=== PATIENT | male | born 1950 | race Caucasian/White ===

== ENCOUNTER 2020-08-06 16:08 | Inpatient (IN) ==
[2020-08-06] MEDS ORDERED: ONDANSETRON 4 MG/2 ML VIAL ONE ×2 (16:31)
[2020-08-06] MEDS ORDERED: MORPHINE 4 MG/1 ML VIAL ONE (16:35)
[2020-08-06] MEDS ORDERED: NITROGLYCERIN SL 0.4 MG TABLET SL STA (16:35)
[2020-08-06] MEDS ORDERED: ONDANSETRON 4 MG/2 ML VIAL IV STA ×2 (16:35→18:31)
[2020-08-06] MEDS ORDERED: MORPHINE 4 MG/1 ML VIAL IV STA (16:35)
[2020-08-06 16:57] LABS: Basophils # 0.2 10*3/uL (0.0-0.2); Basophils % 1.1 % (0.0-0.8); Eosinophils # 0.4 10*3/uL (0.0-0.87); Hematocrit 42.6 VOL% (42.0-52.0); Immature Granulocytes % 0.4 %; Immature Granulocytes Absolute 0.07 #; Lymphocytes % 39.3 % (21.2-54.2); Mean Corpuscular HGB Conc 32.9 GM/DL (32-36); Mean Corpuscular Volume 94.9 FL (87-102); Mean Platelet Volume 9.6 FL (9.6-12.0); Neutrophils % 52.2 % (38.7-73.9); Platelet Count 287 T/CUMM (130-400); Red Blood Count 4.49 MC/CUMM (3.8-5.5); Red Cell Distribution Width 15.8 % (9.3-17.3); White Blood Count 17.9 T/CUMM (4-12)
[2020-08-06 17:29] LABS: Alanine Aminotransferase 19 U/L (16-61); Albumin 4.3 G/DL (3.4-5.0); Alkaline Phosphatase 77 U/L (45-117); Aspartate Amino Transferase 26 U/L (0-37); Blood Urea Nitrogen 18 MG/DL (7-18); Calcium 9.5 MG/DL (8.5-10.1); Estimated Glom Filtration Rate 77 ML/MIN; Glucose 225 MG/DL (74-106); Osmolality,Calculated 283.7 MOS/KG (273-304); Total Protein 7.7 G/DL (6.4-8.3)
[2020-08-06 17:35] LABS: Bilirubin,Urine Negative (Negative); Blood, Urine Moderate mg/dL (Negative); Glucose,Urine (UA) 150 mg/dL (Negative); Ketones,Urine 20 mg/dL (Negative); Mucus,Urine Occasional /LPF (Occasional); Nitrite,Urine Negative (Negative); Protein,Urine >=500 MG/DL; RBC,Urine 25 /HPF (0-4); Urine Appearance CLEAR (Clear); Urine Color Yellow (Yellow); Urine Specific Gravity 1.023 (1.001-1.035); Urine Urobilinogen < 2.0 EU/DL (0.2-1.0); WBC,Urine 1 /HPF (0-6)
[2020-08-06] MEDS ORDERED: POTASSIUM CHLORIDE RIDER 20 MEQ in PREMIX 1 EACH IV STA (18:13)
[2020-08-06] MEDS ORDERED: HYDROmorphone 2 MG/1 ML VIAL ONE (18:22)
[2020-08-06] MEDS ORDERED: SODIUM CHLORIDE 0.9% 1,000 ML IV STA (18:30)
[2020-08-06] MEDS ORDERED: HYDROmorphone 2 MG/1 ML VIAL IV STA ×2 (18:31→19:10)
[2020-08-06] MEDS: POTASSIUM CHLORIDE RIDER 10 MEQ in PREMIX 1 EACH IV SCH (18:50)
[2020-08-06] MEDS ORDERED: PIPERACILLIN/TAZOBACTAM 3,375 MG in SODIUM CHLORIDE 0.9% 100 ML IV STA (19:10)
[2020-08-06] MEDS ORDERED: PANTOPRAZOLE 40 MG VIAL IV STA (19:10)
[2020-08-06] MEDS ORDERED: hydrALAZINE 20 MG/1 ML VIAL IV STA ×2 (19:12→20:19)
[2020-08-06] MEDS ORDERED: NICOTINE 21 MG/24 HR PATCH TRANSDERM PRN (20:03)
[2020-08-06] MEDS ORDERED: ONDANSETRON 4 MG/2 ML VIAL IV PRN (20:03)
[2020-08-06] MEDS ORDERED: GLUCAGON 1 MG VIAL IM PRN (20:03)
[2020-08-06] MEDS ORDERED: DEXTROSE 50% 25 GM/50 ML VIAL IV PRN (20:03)
[2020-08-06] MEDS ORDERED: fentaNYL 100 MCG/2 ML VIAL IV STA (20:19)
[2020-08-06 21:04] LABS: Thyroid Stimulating Hormone 0.573 uIU/ml (0.358-3.74)
[2020-08-06] MEDS: MORPHINE 4 MG/1 ML VIAL IV PRN (23:58)
[2020-08-07] MEDS: SODIUM CHLORIDE 0.45% 1,000 ML IV SCH (00:03)
[2020-08-07] MEDS: POTASSIUM CHLORIDE RIDER 10 MEQ in PREMIX 1 EACH IV SCH ×3 (00:42→03:40)
[2020-08-07] MEDS: ENOXAPARIN 40 MG/0.4 ML SYRINGE SUBCUT SCH ×2 (01:57→21:34)
[2020-08-07] MEDS: INSULIN REGULAR 100 UNIT/ML SUBCUT SCH ×5 (01:57→21:07)
[2020-08-07] MEDS: PIPERACILLIN/TAZOBACTAM 3,375 MG in SODIUM CHLORIDE 0.9% 100 ML IV SCH ×4 (02:02→22:52)
[2020-08-07 02:47] LABS: Basophils % 0.2 % (0.0-0.8); Hematocrit 39.6 VOL% (42.0-52.0); Hemoglobin 13.9 GM/DL (14.0-18.0); Immature Granulocytes % 0.6 %; Lymphocytes # 0.9 10*3/uL (1.4-4.0); Lymphocytes % 5.4 % (21.2-54.2); Mean Corpuscular HGB Conc 35.1 GM/DL (32-36); Mean Corpuscular Volume 92.1 FL (87-102); Mean Platelet Volume 9.7 FL (9.6-12.0); Monocytes % 3.6 % (1.7-12.7); Neutrophils % 90.2 % (38.7-73.9); Platelet Count 295 T/CUMM (130-400); Red Cell Distribution Width 15.8 % (9.3-17.3); White Blood Count 17.2 T/CUMM (4-12)
[2020-08-07] MEDS: hydrALAZINE 20 MG/1 ML VIAL IV PRN ×2 (02:54→11:47)
[2020-08-07 02:59] LABS: INR 1.1; PT Patient Result 11.7 SECS (9.8-11.9); Partial Thromboplastin Time 27.5 SECS (23.9-33.8)
[2020-08-07 03:12] LABS: Albumin 4.1 G/DL (3.4-5.0); Bilirubin,Total 0.6 MG/DL (0.2-1.0); Calcium 9.5 MG/DL (8.5-10.1); Osmolality,Calculated 280.7 MOS/KG (273-304); Risk Ratio 3.18; Total Protein 7.6 G/DL (6.4-8.3); VLDL CHOLESTEROL 17.2 MG/DL
[2020-08-07] MEDS: MORPHINE 4 MG/1 ML VIAL IV PRN ×2 (03:36→07:58)
[2020-08-07] MEDS ORDERED: HYDROmorphone 2 MG/1 ML VIAL IV ONE ×2 (05:04→11:16)
[2020-08-07] MEDS: PANTOPRAZOLE 40 MG VIAL IV SCH (07:59)
[2020-08-07] MEDS ORDERED: PANTOPRAZOLE 40 MG TABLET PO SCH (09:00)
[2020-08-07] MEDS: DOXYCYCLINE HYCLATE INJ 100 MG in SODIUM CHLORIDE 0.9% 100 ML IV SCH ×2 (10:28→21:34)
[2020-08-07] MEDS ORDERED: POTASSIUM CHLORIDE 20 MEQ TABLET PO PRN (12:43)
[2020-08-07] MEDS ORDERED: BISACODYL 10 MG SUPP RECTAL ONE (12:57)
[2020-08-07] MEDS ORDERED: KETOROLAC 15 MG/1 ML VIAL IV PRN (15:55)
[2020-08-07] MEDS: HYDROmorphone 2 MG/1 ML VIAL IV PRN ×2 (18:19→21:33)
[2020-08-07] MEDS ORDERED: PHENOL 1.4% THROAT SPRAY 177 ML BOTTLE PO PRN (18:20)
[2020-08-07] MEDS: METOPROLOL TARTRATE 25 MG TABLET PO SCH (21:34)
[2020-08-07] MEDS: GABAPENTIN 600 MG TABLET PO SCH (21:34)
[2020-08-08] MEDS: HYDROmorphone 2 MG/1 ML VIAL IV PRN ×3 (02:01→08:04)
[2020-08-08] MEDS: SODIUM CHLORIDE 0.45% 1,000 ML IV SCH (05:09)
[2020-08-08 06:27] LABS: Basophils # 0.1 10*3/uL (0.0-0.2); Basophils % 0.5 % (0.0-0.8); Eosinophils # 0.1 10*3/uL (0.0-0.87); Eosinophils % 0.6 % (0.00-10.9); Hematocrit 38.5 VOL% (42.0-52.0); Hemoglobin 12.4 GM/DL (14.0-18.0); Immature Granulocytes % 0.5 %; Immature Granulocytes Absolute 0.07 #; Lymphocytes # 2.5 10*3/uL (1.4-4.0); Lymphocytes % 18.9 % (21.2-54.2); Mean Corpuscular HGB Conc 32.2 GM/DL (32-36); Mean Corpuscular Volume 95.8 FL (87-102); Mean Platelet Volume 9.6 FL (9.6-12.0); Monocytes % 7.3 % (1.7-12.7); Neutrophils % 72.2 % (38.7-73.9); Platelet Count 220 T/CUMM (130-400); Red Blood Count 4.02 MC/CUMM (3.8-5.5); Red Cell Distribution Width 15.9 % (9.3-17.3); White Blood Count 13.4 T/CUMM (4-12)
[2020-08-08 06:45] LABS: Albumin 3.6 G/DL (3.4-5.0); Bilirubin,Total 1.1 MG/DL (0.2-1.0); Calcium 9.5 MG/DL (8.5-10.1); Total Protein 6.8 G/DL (6.4-8.3)
[2020-08-08] MEDS: PIPERACILLIN/TAZOBACTAM 3,375 MG in SODIUM CHLORIDE 0.9% 100 ML IV SCH (07:39)
[2020-08-08] MEDS ORDERED: POTASSIUM CHLORIDE 20 MEQ TABLET PO PRN (07:47)
[2020-08-08] MEDS: INSULIN REGULAR 100 UNIT/ML SUBCUT SCH ×4 (08:11→22:08)
[2020-08-08] MEDS: PANTOPRAZOLE 40 MG VIAL IV SCH (09:18)
[2020-08-08] MEDS: METOPROLOL TARTRATE 25 MG TABLET PO SCH ×2 (10:34→22:07)
[2020-08-08] MEDS: ATORVASTATIN 40 MG TABLET PO SCH (10:34)
[2020-08-08] MEDS: GABAPENTIN 600 MG TABLET PO SCH ×3 (10:35→22:07)
[2020-08-08] MEDS: SERTRALINE 50 MG TABLET PO SCH (10:35)
[2020-08-08] MEDS: DOXYCYCLINE HYCLATE INJ 100 MG in SODIUM CHLORIDE 0.9% 100 ML IV SCH ×2 (11:41→22:06)
[2020-08-08] MEDS: POTASSIUM CHLORIDE RIDER 10 MEQ in PREMIX 1 EACH IV SCH ×4 (13:10→17:42)
[2020-08-08] MEDS: tiZANidine 4 MG TABLET PO SCH ×2 (14:33→22:07)
[2020-08-08] MEDS: ENOXAPARIN 40 MG/0.4 ML SYRINGE SUBCUT SCH (22:06)
[2020-08-09] MEDS: SODIUM CHLORIDE 0.45% 1,000 ML IV SCH ×4 (00:04→08:17)
[2020-08-09 06:07] LABS: Basophils # 0.1 10*3/uL (0.0-0.2); Basophils % 0.9 % (0.0-0.8); Eosinophils # 0.2 10*3/uL (0.0-0.87); Eosinophils % 2.4 % (0.00-10.9); Hematocrit 36.6 VOL% (42.0-52.0); Hemoglobin 11.5 GM/DL (14.0-18.0); Immature Granulocytes % 0.7 %; Immature Granulocytes Absolute 0.07 #; Lymphocytes # 3.3 10*3/uL (1.4-4.0); Lymphocytes % 33.7 % (21.2-54.2); Mean Corpuscular HGB Conc 31.4 GM/DL (32-36); Mean Corpuscular Volume 99.2 FL (87-102); Mean Platelet Volume 9.8 FL (9.6-12.0); Neutrophils % 55.3 % (38.7-73.9); Platelet Count 181 T/CUMM (130-400); Red Blood Count 3.69 MC/CUMM (3.8-5.5); Red Cell Distribution Width 15.7 % (9.3-17.3); White Blood Count 9.7 T/CUMM (4-12)
[2020-08-09 06:40] LABS: Albumin 3.2 G/DL (3.4-5.0); Bilirubin,Total 0.9 MG/DL (0.2-1.0); Calcium 9.1 MG/DL (8.5-10.1); Osmolality,Calculated 283.3 MOS/KG (273-304); Total Protein 6.2 G/DL (6.4-8.3)
[2020-08-09] MEDS: PIPERACILLIN/TAZOBACTAM 3,375 MG in SODIUM CHLORIDE 0.9% 100 ML IV SCH (07:01)
[2020-08-09] MEDS: POTASSIUM CHLORIDE RIDER 10 MEQ in PREMIX 1 EACH IV SCH (07:13)
[2020-08-09] MEDS: INSULIN REGULAR 100 UNIT/ML SUBCUT SCH ×2 (08:21→14:55)
[2020-08-09] MEDS ORDERED: amLODIPine 5 MG TABLET PO SCH (09:00)
[2020-08-09 09:55] VITALS: BP 164/81
[2020-08-09] MEDS: tiZANidine 4 MG TABLET PO SCH (10:35)
[2020-08-09] MEDS: ATORVASTATIN 40 MG TABLET PO SCH (10:35)
[2020-08-09] MEDS: METOPROLOL TARTRATE 25 MG TABLET PO SCH (10:35)
[2020-08-09] MEDS: SERTRALINE 50 MG TABLET PO SCH (10:36)
[2020-08-09] MEDS: GABAPENTIN 600 MG TABLET PO SCH (10:36)
[2020-08-09] MEDS: DOXYCYCLINE HYCLATE INJ 100 MG in SODIUM CHLORIDE 0.9% 100 ML IV SCH (12:05)
[2020-08-09] MEDS: PANTOPRAZOLE 40 MG VIAL IV SCH (12:05)
== END 2020-08-09 13:37 | disposition home or self-care (01) | DRG 392 ==
LOC: N.ED 16:08 → SUATTDRO 20:02 → N.EDINP 20:02 → N.3E 23:26
PROVIDERS: ADMIT Internal Medicine; ATTEND Emergency Medicine

== ENCOUNTER 2020-08-11 23:33 | Inpatient (IN) ==
[2020-08-11] MEDS ORDERED: DILTIAZEM 50 MG/10 ML VIAL IV ONE (23:58)
[2020-08-12] MEDS ORDERED: METOPROLOL TARTRATE 5 MG/5 ML VIAL IV ONE (00:01)
[2020-08-12] MEDS ORDERED: MORPHINE 4 MG/1 ML VIAL ONE (00:04)
[2020-08-12] MEDS ORDERED: ONDANSETRON 4 MG/2 ML VIAL ONE (00:04)
[2020-08-12 00:09] LABS: Basophils # 0.2 10*3/uL (0.0-0.2); Basophils % 0.8 % (0.0-0.8); Eosinophils # 0.2 10*3/uL (0.0-0.87); Eosinophils % 0.9 % (0.00-10.9); Hematocrit 44.5 VOL% (42.0-52.0); Hemoglobin 14.7 GM/DL (14.0-18.0); Immature Granulocytes % 0.7 %; Immature Granulocytes Absolute 0.12 #; Lymphocytes # 3.8 10*3/uL (1.4-4.0); Lymphocytes % 21.2 % (21.2-54.2); Mean Corpuscular Volume 94.7 FL (87-102); Mean Platelet Volume 9.3 FL (9.6-12.0); Monocytes % 3.7 % (1.7-12.7); Neutrophils % 72.7 % (38.7-73.9); Platelet Count 379 T/CUMM (130-400); Red Cell Distribution Width 15.3 % (9.3-17.3); White Blood Count 17.7 T/CUMM (4-12)
[2020-08-12] MEDS ORDERED: PANTOPRAZOLE 40 MG VIAL IV STA (00:11)
[2020-08-12] MEDS ORDERED: SODIUM CHLORIDE 0.9% 500 ML IV STA (00:11)
[2020-08-12] MEDS ORDERED: MORPHINE 4 MG/1 ML VIAL IV STA (00:11)
[2020-08-12] MEDS ORDERED: ONDANSETRON 4 MG/2 ML VIAL IV STA (00:11)
[2020-08-12 00:29] LABS: Albumin 3.7 G/DL (3.4-5.0); Bilirubin,Total 0.5 MG/DL (0.2-1.0); Calcium 9.8 MG/DL (8.5-10.1); Osmolality,Calculated 287.4 MOS/KG (273-304)
[2020-08-12 00:32] LABS: Potassium 2.5 MMOL/L (3.5-5.1)
[2020-08-12] MEDS ORDERED: POTASSIUM CHLORIDE RIDER 20 MEQ in PREMIX 1 EACH IV STA ×2 (00:33→00:37)
[2020-08-12 00:49] LABS: Amylase 56 U/L (25-115)
[2020-08-12 00:51] LABS: Troponin I 0.225 NG/ML (0.00-0.045)
[2020-08-12] MEDS ORDERED: PIPERACILLIN/TAZOBACTAM 3,375 MG in SODIUM CHLORIDE 0.9% 100 ML IV STA (01:42)
[2020-08-12 01:51] LABS: ABG Base Excess -3.9 MMOL/L (-2.5-2.5); ABG HCO3 21.2 MMOL/L (20-26); ABG Oxygen Saturation 96.4 % (95-100); ABG PCO2 29.9 MM HG (35-48); ABG PO2 77.6 MM HG (80-95); ABG TCO2 16.7 MMOL/L (23-27); Allen Test Positive; Pt O2 Delivery Device Room Air
[2020-08-12] MEDS ORDERED: SODIUM CHLORIDE 0.9% 1,000 ML IV STA ×2 (02:19→03:28)
[2020-08-12] MEDS ORDERED: DEXTROSE 50% 25 GM/50 ML VIAL IV PRN (03:28)
[2020-08-12] MEDS ORDERED: SODIUM CHLORIDE 0.9% 2,450 ML IV ONE (03:28)
[2020-08-12] MEDS ORDERED: MORPHINE 4 MG/1 ML VIAL IV PRN (03:28)
[2020-08-12] MEDS ORDERED: ONDANSETRON 4 MG/2 ML VIAL IV PRN (03:28)
[2020-08-12] MEDS ORDERED: GLUCAGON 1 MG VIAL IM PRN (03:28)
[2020-08-12 03:42] LABS: Bacteria,Urine Moderate /HPF (Few); Bilirubin,Urine Negative (Negative); Blood, Urine Small mg/dL (Negative); Glucose,Urine (UA) Negative (Negative); Granular Casts,Urine 98 /LPF (0-1); Hyaline Casts,Urine 7 /LPF (0-3); Ketones,Urine Negative (Negative); Mucus,Urine Few /LPF (Occasional); Nitrite,Urine Negative (Negative); Protein,Urine >=500 MG/DL; RBC,Urine 11 /HPF (0-4); Renal Epithelial Cells,Urine Occasional /HPF (<1); Squamous Epithelial Cell,Urine Occasional /HPF (0-10); Urine Appearance CLOUDY (Clear); Urine Color Amber (Yellow); Urine Urobilinogen < 2.0 EU/DL (0.2-1.0); WBC,Urine 8 /HPF (0-6)
[2020-08-12] MEDS: PANTOPRAZOLE 40 MG VIAL IV SCH ×2 (09:30→20:18)
[2020-08-12 09:33] LABS: Basophils % 0.2 % (0.0-0.8); Hematocrit 35.6 VOL% (42.0-52.0); Immature Granulocytes % 0.5 %; Immature Granulocytes Absolute 0.07 #; Lymphocytes # 1.8 10*3/uL (1.4-4.0); Lymphocytes % 13.5 % (21.2-54.2); Mean Corpuscular HGB Conc 33.1 GM/DL (32-36); Mean Corpuscular Volume 94.7 FL (87-102); Mean Platelet Volume 9.1 FL (9.6-12.0); Monocytes % 4.1 % (1.7-12.7); Neutrophils % 81.7 % (38.7-73.9); Red Blood Count 3.76 MC/CUMM (3.8-5.5); Red Cell Distribution Width 15.5 % (9.3-17.3); White Blood Count 13.1 T/CUMM (4-12)
[2020-08-12 09:41] LABS: Hemoglobin 11.8 GM/DL (14.0-18.0); Platelet Count 205 T/CUMM (130-400)
[2020-08-12 09:58] LABS: Bilirubin,Total 0.4 MG/DL (0.2-1.0); Calcium 8.5 MG/DL (8.5-10.1); Osmolality,Calculated 285.1 MOS/KG (273-304); Potassium 3.3 MMOL/L (3.5-5.1); Total Protein 5.9 G/DL (6.4-8.3)
[2020-08-12] MEDS ORDERED: methylPREDNISolone 4 MG TABLET PO SCH (11:00)
[2020-08-12] MEDS ORDERED: MAGNESIUM SULF RIDER 2 GM in PREMIX 1 EACH IV ONE (11:05)
[2020-08-12] MEDS ORDERED: METOPROLOL TARTRATE 5 MG/5 ML VIAL IV SCH (12:00)
[2020-08-12] MEDS: MORPHINE 4 MG/1 ML VIAL IV PRN ×3 (12:20→21:09)
[2020-08-12] MEDS: ENOXAPARIN 80 MG/0.8 ML SYRINGE SUBCUT SCH (12:30)
[2020-08-12] MEDS: POTASSIUM CHLORIDE RIDER 10 MEQ in PREMIX 1 EACH IV SCH ×2 (12:30→13:30)
[2020-08-12] MEDS: PIPERACILLIN/TAZOBACTAM 3,375 MG in SODIUM CHLORIDE 0.9% 100 ML IV SCH ×2 (12:30→18:53)
[2020-08-12 12:34] LABS: Blood Urea Nitrogen 18 MG/DL (7-18); Calcium 8.7 MG/DL (8.5-10.1); Carbon Dioxide 21 MMOL/L (21-32); Estimated Glom Filtration Rate 103 ML/MIN; Glucose 106 MG/DL (74-106); Potassium 3.2 MMOL/L (3.5-5.1); Sodium 143 MMOL/L (136-145); Thyroid Stimulating Hormone 0.272 uIU/ml (0.358-3.74)
[2020-08-12 12:35] LABS: Troponin I 0.447 NG/ML (0.00-0.045)
[2020-08-12] MEDS ORDERED: AMIODARONE INJ 150 MG in DEXTROSE 5% 100 ML IV ONE (13:59)
[2020-08-12] MEDS ORDERED: AMIODARONE INJ 450 MG in DEXTROSE 5% 241 ML IV SCH (14:00)
[2020-08-12] MEDS ORDERED: METOPROLOL TARTRATE 5 MG/5 ML VIAL IV PRN (14:00)
[2020-08-12] MEDS: dilTIAZem INJ 125 MG in SODIUM CHLORIDE 0.9% 125 MG/100 ML BAG IV SCH (14:37)
[2020-08-12] MEDS ORDERED: MAGNESIUM SULF RIDER 2 GM in PREMIX 1 EACH IV PRN (14:41)
[2020-08-12] MEDS ORDERED: MAGNESIUM SULF RIDER 4 GM in PREMIX 1 EACH IV PRN (14:41)
[2020-08-12] MEDS ORDERED: POTASSIUM CHLORIDE RIDER 10 MEQ in PREMIX 1 EACH IV PRN (14:41)
[2020-08-12] MEDS ORDERED: POTASSIUM CHLORIDE 20 MEQ TABLET PO PRN (14:41)
[2020-08-12] MEDS: AMIODARONE INJ 450 MG in DEXTROSE 5% 241 ML IV SCH (19:44)
[2020-08-13] MEDS: dilTIAZem INJ 125 MG in SODIUM CHLORIDE 0.9% 125 MG/100 ML BAG IV SCH (00:16)
[2020-08-13] MEDS: MORPHINE 4 MG/1 ML VIAL IV PRN ×6 (00:40→22:30)
[2020-08-13] MEDS: AMIODARONE INJ 450 MG in DEXTROSE 5% 241 ML IV SCH ×2 (00:59→12:24)
[2020-08-13] MEDS: PIPERACILLIN/TAZOBACTAM 3,375 MG in SODIUM CHLORIDE 0.9% 100 ML IV SCH ×3 (02:19→20:34)
[2020-08-13 05:38] LABS: Basophils # 0.1 10*3/uL (0.0-0.2); Basophils % 1.3 % (0.0-0.8); Eosinophils # 0.3 10*3/uL (0.0-0.87); Eosinophils % 2.9 % (0.00-10.9); Hematocrit 35.3 VOL% (42.0-52.0); Hemoglobin 12.1 GM/DL (14.0-18.0); Immature Granulocytes % 0.3 %; Immature Granulocytes Absolute 0.03 #; Lymphocytes % 28.8 % (21.2-54.2); Mean Corpuscular HGB Conc 34.3 GM/DL (32-36); Mean Corpuscular Volume 93.4 FL (87-102); Mean Platelet Volume 9.8 FL (9.6-12.0); Monocytes % 6.8 % (1.7-12.7); Neutrophils % 59.9 % (38.7-73.9); Platelet Count 212 T/CUMM (130-400); Red Blood Count 3.78 MC/CUMM (3.8-5.5); Red Cell Distribution Width 15.5 % (9.3-17.3); White Blood Count 10.3 T/CUMM (4-12)
[2020-08-13 06:04] LABS: Osmolality,Calculated 280.3 MOS/KG (273-304)
[2020-08-13] MEDS ORDERED: MAGNESIUM SULF RIDER 2 GM in PREMIX 1 EACH IV ONE (07:34)
[2020-08-13] MEDS: POTASSIUM CHLORIDE RIDER 10 MEQ in PREMIX 1 EACH IV SCH ×4 (08:28→11:45)
[2020-08-13] MEDS: PANTOPRAZOLE 40 MG VIAL IV SCH ×2 (08:28→20:31)
[2020-08-13] MEDS ORDERED: propofoL 200 MG/20 ML VIAL IV ONE (13:41)
[2020-08-13] MEDS ORDERED: LIDOCAINE 2% 5 ML VIAL ONE (13:41)
[2020-08-13] MEDS ORDERED: ETOMIDATE 20 MG/10 ML VIAL IV ONE (13:41)
[2020-08-13] MEDS: LACTATED RINGERS 1,000 ML IV SCH (16:15)
[2020-08-14] MEDS: dilTIAZem INJ 125 MG in SODIUM CHLORIDE 0.9% 125 MG/100 ML BAG IV SCH (00:25)
[2020-08-14] MEDS: MORPHINE 4 MG/1 ML VIAL IV PRN ×3 (01:26→16:12)
[2020-08-14] MEDS: AMIODARONE INJ 450 MG in DEXTROSE 5% 241 ML IV SCH (02:36)
[2020-08-14] MEDS: PIPERACILLIN/TAZOBACTAM 3,375 MG in SODIUM CHLORIDE 0.9% 100 ML IV SCH ×3 (05:27→21:43)
[2020-08-14 05:47] LABS: Basophils # 0.1 10*3/uL (0.0-0.2); Basophils % 1.3 % (0.0-0.8); Eosinophils # 0.3 10*3/uL (0.0-0.87); Eosinophils % 4.3 % (0.00-10.9); Hematocrit 31.5 VOL% (42.0-52.0); Hemoglobin 10.6 GM/DL (14.0-18.0); Immature Granulocytes % 0.3 %; Immature Granulocytes Absolute 0.02 #; Lymphocytes # 2.4 10*3/uL (1.4-4.0); Lymphocytes % 35.2 % (21.2-54.2); Mean Corpuscular HGB Conc 33.7 GM/DL (32-36); Mean Corpuscular Volume 94.3 FL (87-102); Mean Platelet Volume 9.5 FL (9.6-12.0); Monocytes % 6.5 % (1.7-12.7); Neutrophils % 52.4 % (38.7-73.9); Platelet Count 175 T/CUMM (130-400); Red Blood Count 3.34 MC/CUMM (3.8-5.5); Red Cell Distribution Width 15.1 % (9.3-17.3); White Blood Count 6.9 T/CUMM (4-12)
[2020-08-14 06:08] LABS: Calcium 8.5 MG/DL (8.5-10.1); Osmolality,Calculated 278.3 MOS/KG (273-304); Potassium 2.8 MMOL/L (3.5-5.1)
[2020-08-14] MEDS ORDERED: tiZANidine 4 MG TABLET PO PRN (07:35)
[2020-08-14] MEDS: LACTATED RINGERS 1,000 ML IV SCH (08:37)
[2020-08-14] MEDS: PANTOPRAZOLE 40 MG VIAL IV SCH ×2 (08:41→21:45)
[2020-08-14] MEDS: SERTRALINE 50 MG TABLET PO SCH (08:41)
[2020-08-14] MEDS: POTASSIUM CHLORIDE 20 MEQ TABLET PO SCH ×2 (08:41→21:43)
[2020-08-14] MEDS: oxyCODONE/ACETAMINOPHEN 5-325 MG TABLET PO PRN (10:47)
[2020-08-14] MEDS: ENOXAPARIN 80 MG/0.8 ML SYRINGE SUBCUT SCH (12:13)
[2020-08-15] MEDS: dilTIAZem INJ 125 MG in SODIUM CHLORIDE 0.9% 125 MG/100 ML BAG IV SCH (01:04)
[2020-08-15] MEDS: ENOXAPARIN 80 MG/0.8 ML SYRINGE SUBCUT SCH ×2 (04:57→12:05)
[2020-08-15] MEDS: PIPERACILLIN/TAZOBACTAM 3,375 MG in SODIUM CHLORIDE 0.9% 100 ML IV SCH ×3 (04:58→22:16)
[2020-08-15] MEDS: oxyCODONE/ACETAMINOPHEN 5-325 MG TABLET PO PRN ×3 (05:00→19:50)
[2020-08-15 06:02] LABS: Basophils # 0.1 10*3/uL (0.0-0.2); Basophils % 1.4 % (0.0-0.8); Eosinophils # 0.2 10*3/uL (0.0-0.87); Eosinophils % 3.8 % (0.00-10.9); Hematocrit 32.3 VOL% (42.0-52.0); Hemoglobin 11.1 GM/DL (14.0-18.0); Immature Granulocytes % 0.3 %; Immature Granulocytes Absolute 0.02 #; Lymphocytes # 2.2 10*3/uL (1.4-4.0); Lymphocytes % 35.4 % (21.2-54.2); Mean Corpuscular HGB Conc 34.4 GM/DL (32-36); Mean Corpuscular Volume 92.6 FL (87-102); Mean Platelet Volume 9.8 FL (9.6-12.0); Monocytes % 6.8 % (1.7-12.7); Neutrophils % 52.3 % (38.7-73.9); Platelet Count 187 T/CUMM (130-400); Red Blood Count 3.49 MC/CUMM (3.8-5.5); Red Cell Distribution Width 15.2 % (9.3-17.3); White Blood Count 6.3 T/CUMM (4-12)
[2020-08-15 07:49] LABS: Calcium 8.8 MG/DL (8.5-10.1); Osmolality,Calculated 280.1 MOS/KG (273-304); Potassium 3.5 MMOL/L (3.5-5.1)
[2020-08-15] MEDS ORDERED: POTASSIUM CHLORIDE 20 MEQ TABLET PO ONE (08:01)
[2020-08-15] MEDS ORDERED: MAGNESIUM SULF RIDER 2 GM in PREMIX 1 EACH IV ONE (08:01)
[2020-08-15] MEDS: PANTOPRAZOLE 40 MG VIAL IV SCH ×2 (08:59→22:14)
[2020-08-15] MEDS: SERTRALINE 50 MG TABLET PO SCH (08:59)
[2020-08-15] MEDS: AMIODARONE 200 MG TABLET PO SCH (08:59)
[2020-08-15] MEDS: MORPHINE 4 MG/1 ML VIAL IV PRN ×3 (09:59→23:57)
[2020-08-15] MEDS: LOSARTAN 25 MG TABLET PO SCH (15:14)
[2020-08-15] MEDS ORDERED: amLODIPine 5 MG TABLET PO SCH (17:00)
[2020-08-15] MEDS: APIXABAN 5 MG TABLET PO SCH (22:08)
[2020-08-16] MEDS: dilTIAZem INJ 125 MG in SODIUM CHLORIDE 0.9% 125 MG/100 ML BAG IV SCH (01:03)
[2020-08-16] MEDS: oxyCODONE/ACETAMINOPHEN 5-325 MG TABLET PO PRN ×2 (02:27→08:24)
[2020-08-16] MEDS: PIPERACILLIN/TAZOBACTAM 3,375 MG in SODIUM CHLORIDE 0.9% 100 ML IV SCH ×2 (05:36→12:32)
[2020-08-16] MEDS: MORPHINE 4 MG/1 ML VIAL IV PRN ×2 (05:45→13:37)
[2020-08-16 06:34] LABS: Basophils # 0.1 10*3/uL (0.0-0.2); Basophils % 1.7 % (0.0-0.8); Eosinophils # 0.3 10*3/uL (0.0-0.87); Eosinophils % 5.2 % (0.00-10.9); Hematocrit 33.8 VOL% (42.0-52.0); Hemoglobin 11.3 GM/DL (14.0-18.0); Immature Granulocytes % 0.2 %; Immature Granulocytes Absolute 0.01 #; Lymphocytes # 2.2 10*3/uL (1.4-4.0); Lymphocytes % 40.8 % (21.2-54.2); Mean Corpuscular HGB Conc 33.4 GM/DL (32-36); Mean Corpuscular Volume 95.5 FL (87-102); Mean Platelet Volume 9.6 FL (9.6-12.0); Monocytes % 8.3 % (1.7-12.7); Neutrophils % 43.8 % (38.7-73.9); Platelet Count 202 T/CUMM (130-400); Red Blood Count 3.54 MC/CUMM (3.8-5.5); Red Cell Distribution Width 15.1 % (9.3-17.3); White Blood Count 5.4 T/CUMM (4-12)
[2020-08-16 06:55] LABS: Osmolality,Calculated 273.5 MOS/KG (273-304); Potassium 3.3 MMOL/L (3.5-5.1)
[2020-08-16] MEDS: LOSARTAN 25 MG TABLET PO SCH (08:23)
[2020-08-16] MEDS: APIXABAN 5 MG TABLET PO SCH (08:23)
[2020-08-16] MEDS: AMIODARONE 200 MG TABLET PO SCH (08:23)
[2020-08-16] MEDS: SERTRALINE 50 MG TABLET PO SCH (08:23)
[2020-08-16] MEDS: PANTOPRAZOLE 40 MG VIAL IV SCH (08:24)
[2020-08-16] MEDS ORDERED: amLODIPine 10 MG TABLET PO SCH (09:00)
[2020-08-16 12:14] VITALS: BP 164/77
[2020-08-16] MEDS ORDERED: POTASSIUM CHLORIDE 20 MEQ TABLET PO ONE (13:29)
== END 2020-08-16 15:08 | disposition home or self-care (01) | DRG 309 ==
LOC: N.ED 23:33 → SUATTDRO 08-12 03:28 → N.EDINP 08-12 03:28 → N.TELEN 08-12 14:18
PROVIDERS: ADMIT Internal Medicine; ATTEND Internal Medicine

== ENCOUNTER 2020-08-19 14:42 | Observation (INO) ==
[2020-08-19 15:03] LABS: Basophils # 0.2 10*3/uL (0.0-0.2); Basophils % 0.9 % (0.0-0.8); Eosinophils # 0.3 10*3/uL (0.0-0.87); Eosinophils % 1.4 % (0.00-10.9); Hemoglobin 14.1 GM/DL (14.0-18.0); Immature Granulocytes % 0.7 %; Immature Granulocytes Absolute 0.13 #; Lymphocytes # 5.8 10*3/uL (1.4-4.0); Lymphocytes % 31.1 % (21.2-54.2); Mean Corpuscular Volume 99.1 FL (87-102); Mean Platelet Volume 9.2 FL (9.6-12.0); Neutrophils % 62.9 % (38.7-73.9); Platelet Count 398 T/CUMM (130-400); Red Blood Count 4.44 MC/CUMM (3.8-5.5); Red Cell Distribution Width 15.5 % (9.3-17.3); White Blood Count 18.5 T/CUMM (4-12)
[2020-08-19] MEDS ORDERED: SODIUM CHLORIDE 0.9% 500 ML IV STA (15:11)
[2020-08-19] MEDS ORDERED: DILTIAZEM 50 MG/10 ML VIAL IV STA (15:11)
[2020-08-19 15:28] LABS: Albumin 3.8 G/DL (3.4-5.0); Bilirubin,Total 0.4 MG/DL (0.2-1.0); Calcium 9.8 MG/DL (8.5-10.1); Osmolality,Calculated 281.7 MOS/KG (273-304); Potassium 3.7 MMOL/L (3.5-5.1); Total Protein 7.1 G/DL (6.4-8.3)
[2020-08-19] MEDS ORDERED: SODIUM CHLORIDE 0.9% 1,000 ML IV STA (15:31)
[2020-08-19] MEDS ORDERED: PIPERACILLIN/TAZOBACTAM 3,375 MG in SODIUM CHLORIDE 0.9% 100 ML IV STA (16:52)
[2020-08-19] MEDS ORDERED: ONDANSETRON 4 MG/2 ML VIAL IV PRN (17:15)
[2020-08-19] MEDS ORDERED: GLUCAGON 1 MG VIAL IM PRN (17:15)
[2020-08-19] MEDS ORDERED: DEXTROSE 50% 25 GM/50 ML VIAL IV PRN (17:15)
[2020-08-19 17:36] LABS: Bilirubin,Urine Negative (Negative); Blood, Urine Small mg/dL (Negative); Glucose,Urine (UA) Negative (Negative); Hyaline Casts,Urine 44 /LPF (0-3); Ketones,Urine Negative (Negative); Mucus,Urine Occasional /LPF (Occasional); Nitrite,Urine Negative (Negative); Protein,Urine Negative; RBC,Urine 4 /HPF (0-4); Squamous Epithelial Cell,Urine Occasional /HPF (0-10); Urine Appearance Slightly Hazy (Clear); Urine Color Yellow (Yellow); Urine Specific Gravity 1.009 (1.001-1.035); Urine Urobilinogen < 2.0 EU/DL (0.2-1.0); WBC,Urine 3 /HPF (0-6)
[2020-08-19] MEDS: SODIUM CHLORIDE 0.9% 1,000 ML IV SCH (18:49)
[2020-08-19] MEDS ORDERED: MAGNESIUM SULF RIDER 2 GM in PREMIX 1 EACH IV ONE (18:50)
[2020-08-19] MEDS: NICOTINE 21 MG/24 HR PATCH TRANSDERM SCH (18:50)
[2020-08-19] MEDS ORDERED: POTASSIUM CHLORIDE 10 MEQ TABLET PO ONE (18:51)
[2020-08-19] MEDS: APIXABAN 5 MG TABLET PO SCH (21:33)
[2020-08-19] MEDS: METOPROLOL TARTRATE 25 MG TABLET PO SCH (21:33)
[2020-08-19] MEDS: oxyCODONE/ACETAMINOPHEN 5-325 MG TABLET PO PRN (21:34)
[2020-08-20] MEDS: PIPERACILLIN/TAZOBACTAM 3,375 MG in SODIUM CHLORIDE 0.9% 100 ML IV SCH ×3 (02:48→17:15)
[2020-08-20] MEDS: oxyCODONE/ACETAMINOPHEN 5-325 MG TABLET PO PRN ×2 (03:51→11:18)
[2020-08-20 05:31] LABS: Basophils # 0.1 10*3/uL (0.0-0.2); Basophils % 0.5 % (0.0-0.8); Eosinophils # 0.1 10*3/uL (0.0-0.87); Hematocrit 34.2 VOL% (42.0-52.0); Hemoglobin 11.7 GM/DL (14.0-18.0); Immature Granulocytes % 0.4 %; Immature Granulocytes Absolute 0.05 #; Lymphocytes # 2.9 10*3/uL (1.4-4.0); Lymphocytes % 20.9 % (21.2-54.2); Mean Corpuscular HGB Conc 34.2 GM/DL (32-36); Mean Corpuscular Volume 95.5 FL (87-102); Mean Platelet Volume 9.8 FL (9.6-12.0); Monocytes % 4.7 % (1.7-12.7); Neutrophils % 72.5 % (38.7-73.9); Platelet Count 254 T/CUMM (130-400); Red Blood Count 3.58 MC/CUMM (3.8-5.5); Red Cell Distribution Width 15.3 % (9.3-17.3); White Blood Count 13.7 T/CUMM (4-12)
[2020-08-20 05:56] LABS: Albumin 3.2 G/DL (3.4-5.0); Bilirubin,Total 1.1 MG/DL (0.2-1.0); Calcium 9.1 MG/DL (8.5-10.1); Osmolality,Calculated 285.1 MOS/KG (273-304); Potassium 4.6 MMOL/L (3.5-5.1)
[2020-08-20 05:57] LABS: Risk Ratio 2.39
[2020-08-20] MEDS ORDERED: oxyCODONE/ACETAMINOPHEN 5-325 MG TABLET PO PRN (07:29)
[2020-08-20] MEDS ORDERED: tiZANidine 4 MG TABLET PO PRN (07:29)
[2020-08-20] MEDS ORDERED: AMIODARONE 200 MG TABLET PO SCH (09:00)
[2020-08-20] MEDS: ASPIRIN EC 81 MG TABLET PO SCH (09:25)
[2020-08-20] MEDS: THEOPHYLLINE ER (24 HR) 400 MG TABLET PO SCH (09:25)
[2020-08-20] MEDS: APIXABAN 5 MG TABLET PO SCH ×2 (09:26→21:10)
[2020-08-20] MEDS: METOPROLOL TARTRATE 25 MG TABLET PO SCH ×2 (09:26→21:11)
[2020-08-20] MEDS: SERTRALINE 50 MG TABLET PO SCH (09:26)
[2020-08-20] MEDS: POTASSIUM CHLORIDE 20 MEQ TABLET PO SCH (09:26)
[2020-08-20] MEDS: AMIODARONE 200 MG TABLET PO SCH ×2 (09:26→21:10)
[2020-08-20] MEDS: PANTOPRAZOLE 40 MG TABLET PO SCH ×2 (09:26→21:10)
[2020-08-20] MEDS: GABAPENTIN 600 MG TABLET PO SCH ×3 (09:26→21:10)
[2020-08-20] MEDS: NICOTINE 21 MG/24 HR PATCH TRANSDERM SCH (09:32)
[2020-08-20] MEDS: SODIUM CHLORIDE 0.9% 1,000 ML IV SCH (15:15)
[2020-08-20] MEDS ORDERED: gemfibroziL 600 MG TABLET PO SCH (17:00)
[2020-08-20] MEDS ORDERED: ATORVASTATIN 40 MG TABLET PO SCH (17:00)
[2020-08-21] MEDS: oxyCODONE/ACETAMINOPHEN 5-325 MG TABLET PO PRN ×2 (00:25→06:26)
[2020-08-21] MEDS: PIPERACILLIN/TAZOBACTAM 3,375 MG in SODIUM CHLORIDE 0.9% 100 ML IV SCH (02:33)
[2020-08-21 06:14] LABS: Basophils # 0.1 10*3/uL (0.0-0.2); Basophils % 1.3 % (0.0-0.8); Eosinophils # 0.2 10*3/uL (0.0-0.87); Eosinophils % 2.3 % (0.00-10.9); Hematocrit 35.4 VOL% (42.0-52.0); Immature Granulocytes % 0.4 %; Immature Granulocytes Absolute 0.03 #; Lymphocytes # 2.9 10*3/uL (1.4-4.0); Lymphocytes % 38.2 % (21.2-54.2); Mean Corpuscular HGB Conc 32.8 GM/DL (32-36); Mean Corpuscular Volume 97.8 FL (87-102); Mean Platelet Volume 9.5 FL (9.6-12.0); Monocytes % 5.2 % (1.7-12.7); Neutrophils % 52.6 % (38.7-73.9); Platelet Count 213 T/CUMM (130-400); Red Blood Count 3.62 MC/CUMM (3.8-5.5); Red Cell Distribution Width 15.2 % (9.3-17.3); White Blood Count 7.7 T/CUMM (4-12)
[2020-08-21 06:15] LABS: Hemoglobin 11.6 GM/DL (14.0-18.0)
[2020-08-21 06:26] LABS: Calcium 9.7 MG/DL (8.5-10.1); Osmolality,Calculated 278.4 MOS/KG (273-304); Potassium 4.9 MMOL/L (3.5-5.1)
[2020-08-21] MEDS ORDERED: AMIODARONE 200 MG TABLET PO SCH (08:01)
[2020-08-21] MEDS: ASPIRIN EC 81 MG TABLET PO SCH (09:04)
[2020-08-21] MEDS: SERTRALINE 50 MG TABLET PO SCH (09:04)
[2020-08-21] MEDS: PANTOPRAZOLE 40 MG TABLET PO SCH (09:04)
[2020-08-21] MEDS: APIXABAN 5 MG TABLET PO SCH (09:04)
[2020-08-21] MEDS: METOPROLOL TARTRATE 25 MG TABLET PO SCH (09:04)
[2020-08-21] MEDS: POTASSIUM CHLORIDE 20 MEQ TABLET PO SCH (09:04)
[2020-08-21] MEDS: GABAPENTIN 600 MG TABLET PO SCH (09:04)
[2020-08-21] MEDS: NICOTINE 21 MG/24 HR PATCH TRANSDERM SCH (09:05)
[2020-08-21] MEDS: THEOPHYLLINE ER (24 HR) 400 MG TABLET PO SCH (09:11)
[2020-08-21 10:55] VITALS: BP 138/71
== END 2020-08-21 11:19 | disposition home or self-care (01) ==
LOC: N.EDINP 14:42 → N.ED 14:42 → N.TELES 18:30
PROVIDERS: ADMIT Internal Medicine Geriatric Medicine; ATTEND Internal Medicine Geriatric Medicine

== ENCOUNTER 2020-08-24 10:24 | Inpatient (IN) ==
[2020-08-24 10:49] LABS: Basophils # 0.1 10*3/uL (0.0-0.2); Basophils % 0.4 % (0.0-0.8); Hematocrit 43.8 VOL% (42.0-52.0); Hemoglobin 15.1 GM/DL (14.0-18.0); Immature Granulocytes % 0.6 %; Immature Granulocytes Absolute 0.07 #; Lymphocytes # 1.2 10*3/uL (1.4-4.0); Lymphocytes % 9.8 % (21.2-54.2); Mean Corpuscular HGB Conc 34.5 GM/DL (32-36); Mean Platelet Volume 9.3 FL (9.6-12.0); Monocytes % 2.5 % (1.7-12.7); Neutrophils % 86.7 % (38.7-73.9); Platelet Count 371 T/CUMM (130-400); Red Blood Count 4.66 MC/CUMM (3.8-5.5); Red Cell Distribution Width 14.7 % (9.3-17.3); White Blood Count 12.6 T/CUMM (4-12)
[2020-08-24] MEDS ORDERED: ONDANSETRON 4 MG/2 ML VIAL IV STA (10:58)
[2020-08-24] MEDS ORDERED: HYDROmorphone 2 MG/1 ML VIAL IV STA ×2 (10:58→12:43)
[2020-08-24 11:00] LABS: INR 1.1; Partial Thromboplastin Time 28.8 SECS (23.9-33.8)
[2020-08-24 11:15] LABS: Albumin 4.2 G/DL (3.4-5.0); Bilirubin,Total 0.5 MG/DL (0.2-1.0); Calcium 11.4 MG/DL (8.5-10.1); Osmolality,Calculated 284.5 MOS/KG (273-304); Potassium 3.5 MMOL/L (3.5-5.1); Total Protein 7.8 G/DL (6.4-8.3)
[2020-08-24] MEDS ORDERED: SODIUM CHLORIDE 0.9% 1,000 ML IV STA (11:55)
[2020-08-24] MEDS ORDERED: DEXTROSE 50% 25 GM/50 ML VIAL IV PRN (13:37)
[2020-08-24] MEDS ORDERED: ACETAMINOPHEN 325 MG TABLET PO PRN (13:37)
[2020-08-24] MEDS ORDERED: ONDANSETRON 4 MG/2 ML VIAL IV PRN (13:37)
[2020-08-24] MEDS ORDERED: hydrALAZINE 20 MG/1 ML VIAL IV PRN (13:37)
[2020-08-24] MEDS ORDERED: GLUCAGON 1 MG VIAL IM PRN (13:37)
[2020-08-24] MEDS ORDERED: PANTOPRAZOLE 40 MG VIAL IV ONE (13:53)
[2020-08-24] MEDS: SODIUM CHLORIDE 0.9% 1,000 ML IV SCH ×2 (15:53→20:31)
[2020-08-24] MEDS: ATORVASTATIN 40 MG TABLET PO SCH (16:19)
[2020-08-24] MEDS: gemfibroziL 600 MG TABLET PO SCH (16:19)
[2020-08-24] MEDS: oxyCODONE/ACETAMINOPHEN 5-325 MG TABLET PO PRN (17:03)
[2020-08-24] MEDS: DICYCLOMINE 10 MG CAPSULE PO SCH ×2 (17:04→20:37)
[2020-08-24] MEDS ORDERED: LACTATED RINGERS 1,000 ML IV ONE (17:13)
[2020-08-24] MEDS: METOCLOPRAMIDE 10 MG/2 ML VIAL IV SCH (18:38)
[2020-08-24] MEDS: ENOXAPARIN 80 MG/0.8 ML SYRINGE SUBCUT SCH (20:34)
[2020-08-24] MEDS: AMIODARONE 200 MG TABLET PO SCH (20:37)
[2020-08-24] MEDS: GABAPENTIN 600 MG TABLET PO SCH (20:38)
[2020-08-24] MEDS: METOPROLOL TARTRATE 25 MG TABLET PO SCH (20:38)
[2020-08-24] MEDS ORDERED: ENOXAPARIN 40 MG/0.4 ML SYRINGE SUBCUT SCH (21:00)
[2020-08-24] MEDS: MORPHINE 4 MG/1 ML VIAL IV PRN (22:41)
[2020-08-25] MEDS: METOCLOPRAMIDE 10 MG/2 ML VIAL IV SCH ×5 (00:38→23:57)
[2020-08-25 01:01] LABS: Bacteria,Urine Occasional /HPF (Few); Bilirubin,Urine Negative (Negative); Blood, Urine Negative (Negative); Glucose,Urine (UA) Negative (Negative); Hyaline Casts,Urine 11 /LPF (0-3); Ketones,Urine Negative (Negative); Mucus,Urine Few /LPF (Occasional); Nitrite,Urine Negative (Negative); Protein,Urine 30 MG/DL; RBC,Urine 3 /HPF (0-4); Urine Appearance CLEAR (Clear); Urine Color Yellow (Yellow); Urine Specific Gravity 1.015 (1.001-1.035); Urine Urobilinogen < 2.0 EU/DL (0.2-1.0); WBC,Urine 2 /HPF (0-6)
[2020-08-25 05:44] LABS: Basophils # 0.1 10*3/uL (0.0-0.2); Basophils % 0.8 % (0.0-0.8); Eosinophils # 0.2 10*3/uL (0.0-0.87); Eosinophils % 1.6 % (0.00-10.9); Hematocrit 34.6 VOL% (42.0-52.0); Hemoglobin 11.7 GM/DL (14.0-18.0); Immature Granulocytes % 0.2 %; Immature Granulocytes Absolute 0.02 #; Lymphocytes # 2.7 10*3/uL (1.4-4.0); Lymphocytes % 28.5 % (21.2-54.2); Mean Corpuscular HGB Conc 33.8 GM/DL (32-36); Mean Corpuscular Volume 95.3 FL (87-102); Mean Platelet Volume 9.9 FL (9.6-12.0); Monocytes % 5.9 % (1.7-12.7); Platelet Count 190 T/CUMM (130-400); Red Blood Count 3.63 MC/CUMM (3.8-5.5); Red Cell Distribution Width 14.7 % (9.3-17.3); White Blood Count 9.3 T/CUMM (4-12)
[2020-08-25] MEDS: MORPHINE 4 MG/1 ML VIAL IV PRN ×3 (06:18→17:27)
[2020-08-25 06:21] LABS: Calcium 9.2 MG/DL (8.5-10.1); Osmolality,Calculated 283.1 MOS/KG (273-304); Potassium 3.8 MMOL/L (3.5-5.1)
[2020-08-25] MEDS: SODIUM CHLORIDE 0.9% 1,000 ML IV SCH ×2 (06:22→17:30)
[2020-08-25] MEDS: ASPIRIN EC 81 MG TABLET PO SCH (09:00)
[2020-08-25] MEDS: POTASSIUM CHLORIDE 20 MEQ TABLET PO SCH (09:01)
[2020-08-25] MEDS: GABAPENTIN 600 MG TABLET PO SCH ×3 (09:01→21:15)
[2020-08-25] MEDS: AMIODARONE 200 MG TABLET PO SCH ×2 (09:01→21:18)
[2020-08-25] MEDS: gemfibroziL 600 MG TABLET PO SCH ×2 (09:01→17:27)
[2020-08-25] MEDS: THEOPHYLLINE ER (24 HR) 400 MG TABLET PO SCH (09:01)
[2020-08-25] MEDS: METOPROLOL TARTRATE 25 MG TABLET PO SCH ×2 (09:01→21:15)
[2020-08-25] MEDS: SERTRALINE 50 MG TABLET PO SCH (09:01)
[2020-08-25] MEDS: DICYCLOMINE 10 MG CAPSULE PO SCH ×4 (09:01→21:15)
[2020-08-25] MEDS: oxyCODONE/ACETAMINOPHEN 5-325 MG TABLET PO PRN ×2 (09:09→23:56)
[2020-08-25] MEDS: ATORVASTATIN 40 MG TABLET PO SCH (17:27)
[2020-08-25] MEDS: ENOXAPARIN 80 MG/0.8 ML SYRINGE SUBCUT SCH (21:16)
[2020-08-26] MEDS: SODIUM CHLORIDE 0.9% 1,000 ML IV SCH (02:30)
[2020-08-26 04:44] LABS: Basophils # 0.1 10*3/uL (0.0-0.2); Basophils % 1.8 % (0.0-0.8); Eosinophils # 0.2 10*3/uL (0.0-0.87); Eosinophils % 2.6 % (0.00-10.9); Hematocrit 32.1 VOL% (42.0-52.0); Hemoglobin 10.7 GM/DL (14.0-18.0); Immature Granulocytes % 0.3 %; Immature Granulocytes Absolute 0.02 #; Lymphocytes # 2.4 10*3/uL (1.4-4.0); Lymphocytes % 38.8 % (21.2-54.2); Mean Corpuscular HGB Conc 33.3 GM/DL (32-36); Mean Corpuscular Volume 95.8 FL (87-102); Mean Platelet Volume 9.3 FL (9.6-12.0); Monocytes % 6.3 % (1.7-12.7); Neutrophils % 50.2 % (38.7-73.9); Platelet Count 171 T/CUMM (130-400); Red Blood Count 3.35 MC/CUMM (3.8-5.5); Red Cell Distribution Width 14.6 % (9.3-17.3); White Blood Count 6.2 T/CUMM (4-12)
[2020-08-26 05:06] LABS: Calcium 9.1 MG/DL (8.5-10.1); Potassium 4.4 MMOL/L (3.5-5.1)
[2020-08-26] MEDS: METOCLOPRAMIDE 10 MG/2 ML VIAL IV SCH (05:38)
[2020-08-26] MEDS: oxyCODONE/ACETAMINOPHEN 5-325 MG TABLET PO PRN ×3 (06:10→18:27)
[2020-08-26] MEDS: ASPIRIN EC 81 MG TABLET PO SCH (09:09)
[2020-08-26] MEDS: THEOPHYLLINE ER (24 HR) 400 MG TABLET PO SCH (09:09)
[2020-08-26] MEDS: gemfibroziL 600 MG TABLET PO SCH ×2 (09:10→16:03)
[2020-08-26] MEDS: GABAPENTIN 600 MG TABLET PO SCH ×3 (09:10→21:37)
[2020-08-26] MEDS: POTASSIUM CHLORIDE 20 MEQ TABLET PO SCH (09:10)
[2020-08-26] MEDS: DICYCLOMINE 10 MG CAPSULE PO SCH (09:10)
[2020-08-26] MEDS: SERTRALINE 50 MG TABLET PO SCH (09:10)
[2020-08-26] MEDS: AMIODARONE 200 MG TABLET PO SCH ×2 (09:10→21:37)
[2020-08-26] MEDS: METOPROLOL TARTRATE 25 MG TABLET PO SCH ×2 (09:10→21:37)
[2020-08-26] MEDS: ATORVASTATIN 40 MG TABLET PO SCH (18:48)
[2020-08-26] MEDS: ENOXAPARIN 80 MG/0.8 ML SYRINGE SUBCUT SCH (21:37)
[2020-08-27] MEDS: oxyCODONE/ACETAMINOPHEN 5-325 MG TABLET PO PRN ×3 (00:55→19:51)
[2020-08-27 06:37] LABS: Basophils # 0.1 10*3/uL (0.0-0.2); Basophils % 1.5 % (0.0-0.8); Eosinophils # 0.2 10*3/uL (0.0-0.87); Eosinophils % 3.7 % (0.00-10.9); Hematocrit 32.8 VOL% (42.0-52.0); Hemoglobin 11.2 GM/DL (14.0-18.0); Immature Granulocytes % 0.3 %; Immature Granulocytes Absolute 0.02 #; Lymphocytes # 2.7 10*3/uL (1.4-4.0); Lymphocytes % 43.2 % (21.2-54.2); Mean Corpuscular HGB Conc 34.1 GM/DL (32-36); Mean Corpuscular Volume 93.4 FL (87-102); Mean Platelet Volume 9.8 FL (9.6-12.0); Monocytes % 6.5 % (1.7-12.7); Neutrophils % 44.8 % (38.7-73.9); Platelet Count 183 T/CUMM (130-400); Red Blood Count 3.51 MC/CUMM (3.8-5.5); Red Cell Distribution Width 14.2 % (9.3-17.3); White Blood Count 6.2 T/CUMM (4-12)
[2020-08-27 07:08] LABS: Calcium 9.3 MG/DL (8.5-10.1); Osmolality,Calculated 278.4 MOS/KG (273-304); Potassium 3.5 MMOL/L (3.5-5.1)
[2020-08-27] MEDS: ASPIRIN EC 81 MG TABLET PO SCH (09:24)
[2020-08-27] MEDS: SERTRALINE 50 MG TABLET PO SCH (09:24)
[2020-08-27] MEDS: THEOPHYLLINE ER (24 HR) 400 MG TABLET PO SCH (09:24)
[2020-08-27] MEDS: POTASSIUM CHLORIDE 20 MEQ TABLET PO SCH (09:25)
[2020-08-27] MEDS: AMIODARONE 200 MG TABLET PO SCH ×2 (09:25→20:44)
[2020-08-27] MEDS: gemfibroziL 600 MG TABLET PO SCH ×2 (09:25→17:45)
[2020-08-27] MEDS: GABAPENTIN 600 MG TABLET PO SCH ×3 (09:25→20:44)
[2020-08-27] MEDS: METOPROLOL TARTRATE 25 MG TABLET PO SCH ×2 (09:25→20:44)
[2020-08-27] MEDS: METOCLOPRAMIDE 10 MG/2 ML VIAL IV SCH (17:45)
[2020-08-27] MEDS: ATORVASTATIN 40 MG TABLET PO SCH (17:45)
[2020-08-27] MEDS: ENOXAPARIN 80 MG/0.8 ML SYRINGE SUBCUT SCH (20:44)
[2020-08-28] MEDS: METOCLOPRAMIDE 10 MG/2 ML VIAL IV SCH ×4 (00:55→17:00)
[2020-08-28] MEDS: oxyCODONE/ACETAMINOPHEN 5-325 MG TABLET PO PRN ×4 (01:51→20:24)
[2020-08-28] MEDS: ASPIRIN EC 81 MG TABLET PO SCH (08:11)
[2020-08-28] MEDS: GABAPENTIN 600 MG TABLET PO SCH ×3 (08:13→20:24)
[2020-08-28] MEDS: SERTRALINE 50 MG TABLET PO SCH (08:13)
[2020-08-28] MEDS: POTASSIUM CHLORIDE 20 MEQ TABLET PO SCH (08:13)
[2020-08-28] MEDS: THEOPHYLLINE ER (24 HR) 400 MG TABLET PO SCH (08:13)
[2020-08-28] MEDS: gemfibroziL 600 MG TABLET PO SCH ×2 (08:13→17:00)
[2020-08-28] MEDS: AMIODARONE 200 MG TABLET PO SCH ×2 (08:13→20:25)
[2020-08-28] MEDS: METOPROLOL TARTRATE 25 MG TABLET PO SCH ×2 (08:13→20:25)
[2020-08-28] MEDS: ATORVASTATIN 40 MG TABLET PO SCH (17:00)
[2020-08-28] MEDS: ENOXAPARIN 80 MG/0.8 ML SYRINGE SUBCUT SCH (20:26)
[2020-08-29] MEDS: METOCLOPRAMIDE 10 MG/2 ML VIAL IV SCH ×4 (00:18→17:16)
[2020-08-29] MEDS: oxyCODONE/ACETAMINOPHEN 5-325 MG TABLET PO PRN ×4 (02:29→20:55)
[2020-08-29 06:40] LABS: Calcium 9.7 MG/DL (8.5-10.1); Osmolality,Calculated 275.7 MOS/KG (273-304)
[2020-08-29] MEDS: ASPIRIN EC 81 MG TABLET PO SCH (08:26)
[2020-08-29] MEDS: gemfibroziL 600 MG TABLET PO SCH ×2 (08:26→17:07)
[2020-08-29] MEDS: THEOPHYLLINE ER (24 HR) 400 MG TABLET PO SCH (08:26)
[2020-08-29] MEDS: SERTRALINE 50 MG TABLET PO SCH (08:26)
[2020-08-29] MEDS: METOPROLOL TARTRATE 25 MG TABLET PO SCH ×2 (08:27→20:56)
[2020-08-29] MEDS: POTASSIUM CHLORIDE 20 MEQ TABLET PO SCH (08:27)
[2020-08-29] MEDS: GABAPENTIN 600 MG TABLET PO SCH ×3 (08:27→20:57)
[2020-08-29] MEDS: AMIODARONE 200 MG TABLET PO SCH ×2 (08:27→20:57)
[2020-08-29] MEDS: ATORVASTATIN 40 MG TABLET PO SCH (17:07)
[2020-08-29] MEDS: APIXABAN 5 MG TABLET PO SCH (20:57)
[2020-08-30] MEDS: METOCLOPRAMIDE 10 MG/2 ML VIAL IV SCH ×5 (05:26→23:09)
[2020-08-30] MEDS: oxyCODONE/ACETAMINOPHEN 5-325 MG TABLET PO PRN ×3 (07:40→20:02)
[2020-08-30] MEDS: METOPROLOL TARTRATE 25 MG TABLET PO SCH ×2 (08:40→20:02)
[2020-08-30] MEDS: ASPIRIN EC 81 MG TABLET PO SCH (08:40)
[2020-08-30] MEDS: SERTRALINE 50 MG TABLET PO SCH (08:41)
[2020-08-30] MEDS: gemfibroziL 600 MG TABLET PO SCH ×2 (08:41→17:11)
[2020-08-30] MEDS: POTASSIUM CHLORIDE 20 MEQ TABLET PO SCH (08:41)
[2020-08-30] MEDS: AMIODARONE 200 MG TABLET PO SCH ×2 (08:41→20:02)
[2020-08-30] MEDS: THEOPHYLLINE ER (24 HR) 400 MG TABLET PO SCH (08:41)
[2020-08-30] MEDS: GABAPENTIN 600 MG TABLET PO SCH ×3 (08:41→20:02)
[2020-08-30] MEDS: APIXABAN 5 MG TABLET PO SCH ×2 (08:41→20:02)
[2020-08-30] MEDS: DOCUSATE SODIUM 100 MG CAPSULE PO SCH ×2 (15:11→20:02)
[2020-08-30] MEDS: ATORVASTATIN 40 MG TABLET PO SCH (17:11)
[2020-08-31] MEDS: oxyCODONE/ACETAMINOPHEN 5-325 MG TABLET PO PRN ×4 (02:21→21:57)
[2020-08-31] MEDS: METOCLOPRAMIDE 10 MG/2 ML VIAL IV SCH ×4 (05:26→23:59)
[2020-08-31] MEDS: gemfibroziL 600 MG TABLET PO SCH ×2 (08:24→16:04)
[2020-08-31] MEDS: POTASSIUM CHLORIDE 20 MEQ TABLET PO SCH (08:25)
[2020-08-31] MEDS: METOPROLOL TARTRATE 25 MG TABLET PO SCH ×2 (08:25→20:16)
[2020-08-31] MEDS: THEOPHYLLINE ER (24 HR) 400 MG TABLET PO SCH (08:25)
[2020-08-31] MEDS: ASPIRIN EC 81 MG TABLET PO SCH (08:25)
[2020-08-31] MEDS: AMIODARONE 200 MG TABLET PO SCH ×2 (08:25→20:16)
[2020-08-31] MEDS: GABAPENTIN 600 MG TABLET PO SCH ×3 (08:25→20:16)
[2020-08-31] MEDS: SERTRALINE 50 MG TABLET PO SCH (08:25)
[2020-08-31] MEDS: DOCUSATE SODIUM 100 MG CAPSULE PO SCH ×3 (08:25→20:16)
[2020-08-31] MEDS: APIXABAN 5 MG TABLET PO SCH ×2 (08:25→20:16)
[2020-08-31] MEDS: ATORVASTATIN 40 MG TABLET PO SCH (16:04)
[2020-09-01] MEDS: oxyCODONE/ACETAMINOPHEN 5-325 MG TABLET PO PRN ×4 (03:14→22:58)
[2020-09-01] MEDS: METOCLOPRAMIDE 10 MG/2 ML VIAL IV SCH ×3 (05:00→17:12)
[2020-09-01] MEDS: DOCUSATE SODIUM 100 MG CAPSULE PO SCH ×3 (09:43→21:02)
[2020-09-01] MEDS: APIXABAN 5 MG TABLET PO SCH ×2 (09:43→21:02)
[2020-09-01] MEDS: gemfibroziL 600 MG TABLET PO SCH ×2 (09:43→17:12)
[2020-09-01] MEDS: THEOPHYLLINE ER (24 HR) 400 MG TABLET PO SCH (09:44)
[2020-09-01] MEDS: SERTRALINE 50 MG TABLET PO SCH (09:44)
[2020-09-01] MEDS: AMIODARONE 200 MG TABLET PO SCH ×2 (09:44→21:02)
[2020-09-01] MEDS: ASPIRIN EC 81 MG TABLET PO SCH (09:44)
[2020-09-01] MEDS: POTASSIUM CHLORIDE 20 MEQ TABLET PO SCH (09:44)
[2020-09-01] MEDS: GABAPENTIN 600 MG TABLET PO SCH ×3 (09:44→21:02)
[2020-09-01] MEDS: METOPROLOL TARTRATE 25 MG TABLET PO SCH ×2 (09:44→21:03)
[2020-09-01] MEDS: ATORVASTATIN 40 MG TABLET PO SCH (17:12)
[2020-09-02] MEDS: METOCLOPRAMIDE 10 MG/2 ML VIAL IV SCH ×2 (00:47→05:58)
[2020-09-02 05:19] LABS: Basophils # 0.1 10*3/uL (0.0-0.2); Eosinophils # 0.3 10*3/uL (0.0-0.87); Eosinophils % 3.2 % (0.00-10.9); Hematocrit 38.1 VOL% (42.0-52.0); Hemoglobin 12.7 GM/DL (14.0-18.0); Immature Granulocytes % 0.3 %; Immature Granulocytes Absolute 0.03 #; Lymphocytes # 2.7 10*3/uL (1.4-4.0); Mean Corpuscular HGB Conc 33.3 GM/DL (32-36); Mean Corpuscular Volume 95.7 FL (87-102); Mean Platelet Volume 9.8 FL (9.6-12.0); Monocytes % 8.6 % (1.7-12.7); Neutrophils % 59.9 % (38.7-73.9); Platelet Count 183 T/CUMM (130-400); Red Blood Count 3.98 MC/CUMM (3.8-5.5); Red Cell Distribution Width 14.4 % (9.3-17.3); White Blood Count 9.9 T/CUMM (4-12)
[2020-09-02 05:41] LABS: Calcium 10.2 MG/DL (8.5-10.1)
[2020-09-02] MEDS: oxyCODONE/ACETAMINOPHEN 5-325 MG TABLET PO PRN (06:00)
[2020-09-02 08:26] VITALS: BP 92/46
[2020-09-02] MEDS: DOCUSATE SODIUM 100 MG CAPSULE PO SCH (09:22)
[2020-09-02] MEDS: METOPROLOL TARTRATE 25 MG TABLET PO SCH (09:22)
[2020-09-02] MEDS: ASPIRIN EC 81 MG TABLET PO SCH (09:22)
[2020-09-02] MEDS: POTASSIUM CHLORIDE 20 MEQ TABLET PO SCH (09:22)
[2020-09-02] MEDS: APIXABAN 5 MG TABLET PO SCH (09:22)
[2020-09-02] MEDS: THEOPHYLLINE ER (24 HR) 400 MG TABLET PO SCH (09:22)
[2020-09-02] MEDS: GABAPENTIN 600 MG TABLET PO SCH (09:23)
[2020-09-02] MEDS: SERTRALINE 50 MG TABLET PO SCH (09:23)
[2020-09-02] MEDS: gemfibroziL 600 MG TABLET PO SCH (09:23)
[2020-09-02] MEDS: AMIODARONE 200 MG TABLET PO SCH (10:31)
== END 2020-09-02 11:42 | disposition home or self-care (01) | DRG 392 ==
LOC: N.ED 10:24 → SUATTDRO 13:24 → N.EDINP 13:24 → N.5E 14:45
PROVIDERS: ADMIT Family Medicine; ATTEND Internal Medicine

== ENCOUNTER 2020-09-04 22:16 | Inpatient (IN) ==
[2020-09-04 23:03] LABS: Basophils % 0.3 % (0.0-0.8); Eosinophils % 0.2 % (0.00-10.9); Hematocrit 47.9 VOL% (42.0-52.0); Hemoglobin 15.8 GM/DL (14.0-18.0); Immature Granulocytes % 0.2 %; Immature Granulocytes Absolute 0.03 #; Lymphocytes # 1.5 10*3/uL (1.4-4.0); Lymphocytes % 11.9 % (21.2-54.2); Mean Corpuscular Volume 97.2 FL (87-102); Mean Platelet Volume 9.7 FL (9.6-12.0); Monocytes % 4.4 % (1.7-12.7); Platelet Count 312 T/CUMM (130-400); Red Blood Count 4.93 MC/CUMM (3.8-5.5); Red Cell Distribution Width 14.4 % (9.3-17.3); White Blood Count 12.7 T/CUMM (4-12)
[2020-09-04] MEDS ORDERED: HALOPERIDOL 5 MG/ML AMP IM STA (23:05)
[2020-09-04 23:11] LABS: INR 1.5; PT Patient Result 15.7 SECS (9.8-11.9); Partial Thromboplastin Time 36.7 SECS (23.9-33.8)
[2020-09-04] MEDS ORDERED: HALOPERIDOL 5 MG/ML AMP IV STA (23:15)
[2020-09-04 23:16] LABS: Albumin 3.4 G/DL (3.4-5.0); Bilirubin,Total 0.8 MG/DL (0.2-1.0); Osmolality,Calculated 270.1 MOS/KG (273-304); Potassium 5.5 MMOL/L (3.5-5.1); Total Protein 8.1 G/DL (6.4-8.3)
[2020-09-04 23:23] LABS: Band Neutrophils 4 % (0-10); Lymphocytes 16 % (20-55); Platelet Estimate Normal; Segmented Neutrophils 76 % (50-85); Total Cells Counted 100
[2020-09-05 01:22] LABS: Bacteria,Urine Occasional /HPF (Few); Bilirubin,Urine Negative (Negative); Blood, Urine Small mg/dL (Negative); Glucose,Urine (UA) Negative (Negative); Hyaline Casts,Urine 17 /LPF (0-3); Ketones,Urine Negative (Negative); Mucus,Urine Occasional /LPF (Occasional); Nitrite,Urine Negative (Negative); Protein,Urine 100 MG/DL; RBC,Urine 5 /HPF (0-4); Squamous Epithelial Cell,Urine Occasional /HPF (0-10); Urine Appearance Slightly Hazy (Clear); Urine Color Yellow (Yellow); Urine Urobilinogen < 2.0 EU/DL (0.2-1.0); WBC,Urine 5 /HPF (0-6)
[2020-09-05] MEDS ORDERED: PIPERACILLIN/TAZOBACTAM 3,375 MG in SODIUM CHLORIDE 0.9% 100 ML IV STA (02:04)
[2020-09-05] MEDS ORDERED: MORPHINE 4 MG/1 ML VIAL IV STA (02:11)
[2020-09-05] MEDS ORDERED: ONDANSETRON 4 MG/2 ML VIAL IV PRN (02:27)
[2020-09-05] MEDS ORDERED: HYDROmorphone 2 MG/1 ML VIAL IV PRN (02:27)
[2020-09-05] MEDS ORDERED: SODIUM CHLORIDE 0.9% 1,000 ML IV STA (02:29)
[2020-09-05] MEDS ORDERED: BENZOCAINE/BUTAMBEN/TETRACAINE SPRAY 20 GM CAN TOP STA (02:38)
[2020-09-05 02:45] LABS: Barbiturates Screen,Urine Negative (Negative); Benzodiazepines Screen,Urine Negative (Negative); Cannabinoid Screen,Urine Negative (Negative); Opiate Screen,Urine Positive (Negative); Phencyclidine Screen,Urine Negative (Negative)
[2020-09-05] MEDS ORDERED: INSULIN REGULAR 100 UNIT/ML IV STA (02:49)
[2020-09-05] MEDS ORDERED: DEXTROSE 50% 25 GM/50 ML VIAL IV STA (02:49)
[2020-09-05] MEDS: LACTATED RINGERS 1,000 ML IV SCH ×4 (04:23→23:45)
[2020-09-05] MEDS ORDERED: NOREPINEPHRINE 4 MG/4 ML VIAL IV ONE (05:14)
[2020-09-05] MEDS: NOREPINEPHRINE 8 MG in SODIUM CHLORIDE 0.9% 242 ML IV PRN ×2 (05:24→23:46)
[2020-09-05] MEDS ORDERED: SEVOFLURANE 1 UNIT/15 MINUTE INH ONE (06:30)
[2020-09-05] MEDS ORDERED: ONDANSETRON 4 MG/2 ML VIAL ONE (06:30)
[2020-09-05] MEDS ORDERED: propofoL 200 MG/20 ML VIAL IV ONE (06:30)
[2020-09-05] MEDS ORDERED: PHENYLEPHRINE 1 MG/10 ML SYRINGE IV ONE (06:30)
[2020-09-05] MEDS ORDERED: LIDOCAINE 2% 5 ML VIAL ONE (06:30)
[2020-09-05] MEDS ORDERED: SUCCINYLCHOLINE 200 MG/10 ML VIAL ONE (06:30)
[2020-09-05] MEDS ORDERED: ETOMIDATE 40 MG/20 ML VIAL IV ONE (06:30)
[2020-09-05] MEDS ORDERED: ROCURONIUM 50 MG/5 ML VIAL IV ONE (06:30)
[2020-09-05] MEDS ORDERED: MIDAZOLAM 2 MG/2 ML VIAL ONE (06:31)
[2020-09-05] MEDS ORDERED: fentaNYL 250 MCG/5 ML VIAL ONE (06:31)
[2020-09-05] MEDS ORDERED: SODIUM CHLORIDE 0.9% 1,000 ML IV PRN (06:50)
[2020-09-05] MEDS ORDERED: PROTHROMBIN COMPLEX CONC 3,500 UNIT in IV BAG 1 EACH IV ONE (06:50)
[2020-09-05] MEDS ORDERED: PHENYLEPHRINE 10 MG/1 ML VIAL IV ONE (07:28)
[2020-09-05] MEDS ORDERED: ceFAZolin 1,000 MG VIAL ONE ×2 (07:34→08:16)
[2020-09-05 08:15] LABS: ABG Base Excess -6.2 MMOL/L (-2.5-2.5); ABG HCO3 19.4 MMOL/L (20-26); ABG Oxygen Saturation 99.7 % (95-100); ABG PCO2 43.7 MM HG (35-48); ABG PH 7.279 (7.35-7.45); ABG TCO2 18.4 MMOL/L (23-27); Glucose Heart Surgery 94 MG/DL (74-106); Hematocrit Heart Surgery 37.4 PERCENT (42-52); Hemoglobin Heart Surgery 12.1 G/DL (14.0-18.0)
[2020-09-05] MEDS ORDERED: SODIUM BICARBONATE 50 MEQ/50 ML VIAL IV ONE (08:20)
[2020-09-05] MEDS ORDERED: SODIUM CHLORIDE 0.9% 1,000 ML IV ONE (08:52)
[2020-09-05] MEDS ORDERED: LACTATED RINGERS 3,000 ML IV ONE (08:52)
[2020-09-05] MEDS ORDERED: ALBUMIN 5% 12.5 GM/250 ML VIAL IV ONE (08:54)
[2020-09-05 08:58] LABS: Bilirubin,Urine Negative (Negative); Blood, Urine Moderate mg/dL (Negative); Glucose,Urine (UA) Negative (Negative); Ketones,Urine Negative (Negative); Nitrite,Urine Negative (Negative); Protein,Urine 30 MG/DL; RBC,Urine 11 /HPF (0-4); Squamous Epithelial Cell,Urine Occasional /HPF (0-10); Urine Appearance Slightly Hazy (Clear); Urine Color Amber (Yellow); Urine Specific Gravity 1.023 (1.001-1.035); Urine Urobilinogen < 2.0 EU/DL (0.2-1.0); WBC,Urine 2 /HPF (0-6)
[2020-09-05] MEDS ORDERED: PANTOPRAZOLE 40 MG TABLET PO SCH (09:00)
[2020-09-05] MEDS ORDERED: MIDAZOLAM 100 MG in SODIUM CHLORIDE 0.9% 80 ML IV PRN (09:27)
[2020-09-05] MEDS: fentaNYL INJ 1,250 MCG in SODIUM CHLORIDE 0.9% 225 ML IV PRN ×2 (10:23→23:40)
[2020-09-05 10:45] LABS: ABG Base Excess -1.6 MMOL/L (-2.5-2.5); ABG Oxygen Saturation 92.8 % (95-100); ABG PCO2 38.3 MM HG (35-48); ABG PH 7.389 (7.35-7.45); ABG TCO2 20.5 MMOL/L (23-27)
[2020-09-05 10:48] LABS: Basophils % 0.2 % (0.0-0.8); Hematocrit 35.6 VOL% (42.0-52.0); Hemoglobin 11.8 GM/DL (14.0-18.0); Immature Granulocytes % 0.2 %; Immature Granulocytes Absolute 0.01 #; Lymphocytes # 0.6 10*3/uL (1.4-4.0); Lymphocytes % 11.1 % (21.2-54.2); Mean Corpuscular HGB Conc 33.1 GM/DL (32-36); Mean Corpuscular Volume 96.7 FL (87-102); Monocytes % 3.9 % (1.7-12.7); Neutrophils % 84.6 % (38.7-73.9); Platelet Count 211 T/CUMM (130-400); Red Blood Count 3.68 MC/CUMM (3.8-5.5); Red Cell Distribution Width 14.2 % (9.3-17.3); White Blood Count 5.6 T/CUMM (4-12)
[2020-09-05 11:08] LABS: Band Neutrophils 7 % (0-10); Hypochromasia Slight; Lymphocytes 12 % (20-55); Platelet Estimate Adequate; Segmented Neutrophils 77 % (50-85); Total Cells Counted 100
[2020-09-05 11:14] LABS: Albumin 2.3 G/DL (3.4-5.0); Bilirubin,Total 0.7 MG/DL (0.2-1.0); Calcium 8.7 MG/DL (8.5-10.1); Potassium 5.3 MMOL/L (3.5-5.1); Total Protein 5.3 G/DL (6.4-8.3)
[2020-09-05] MEDS ORDERED: ALBUMIN 5% 25 GM in PREMIX 1 EACH IV ONE (16:15)
[2020-09-06] MEDS ORDERED: DILTIAZEM 50 MG/10 ML VIAL IV ONE (00:42)
[2020-09-06] MEDS: DILTIAZEM INJ 100 MG in SODIUM CHLORIDE 0.9% 100 ML IV SCH (00:49)
[2020-09-06 00:57] LABS: ABG Base Excess 0.3 MMOL/L (-2.5-2.5); ABG HCO3 24.7 MMOL/L (20-26); ABG Oxygen Saturation 98.6 % (95-100); ABG PCO2 35.6 MM HG (35-48); ABG PH 7.439 (7.35-7.45); ABG TCO2 21.7 MMOL/L (23-27)
[2020-09-06 00:58] LABS: Basophils % 0.2 % (0.0-0.8); Hematocrit 31.6 VOL% (42.0-52.0); Hemoglobin 10.5 GM/DL (14.0-18.0); Immature Granulocytes % 0.3 %; Immature Granulocytes Absolute 0.02 #; Lymphocytes # 0.7 10*3/uL (1.4-4.0); Lymphocytes % 10.2 % (21.2-54.2); Mean Corpuscular HGB Conc 33.2 GM/DL (32-36); Mean Corpuscular Volume 97.5 FL (87-102); Mean Platelet Volume 9.6 FL (9.6-12.0); Monocytes % 4.1 % (1.7-12.7); Neutrophils % 85.2 % (38.7-73.9); Platelet Count 186 T/CUMM (130-400); Red Blood Count 3.24 MC/CUMM (3.8-5.5); Red Cell Distribution Width 14.1 % (9.3-17.3); White Blood Count 6.4 T/CUMM (4-12)
[2020-09-06] MEDS ORDERED: LACTATED RINGERS 500 ML IV ONE (01:11)
[2020-09-06] MEDS ORDERED: METOPROLOL TARTRATE 5 MG/5 ML VIAL IV ONE ×2 (01:11→01:12)
[2020-09-06 01:21] LABS: Albumin 2.2 G/DL (3.4-5.0); Bilirubin,Total 0.6 MG/DL (0.2-1.0); Calcium 8.6 MG/DL (8.5-10.1); Osmolality,Calculated 288.7 MOS/KG (273-304); Total Protein 5.2 G/DL (6.4-8.3)
[2020-09-06 01:58] LABS: Band Neutrophils 9 % (0-10); Lymphocytes 20 % (20-55); Metamyelocytes 5 %; Myelocytes 1 %; Segmented Neutrophils 59 % (50-85); Total Cells Counted 100
[2020-09-06 01:59] LABS: Hypochromasia 1+; Platelet Estimate Normal; Reactive Lymphocytes 2+
[2020-09-06] MEDS: LACTATED RINGERS 1,000 ML IV SCH ×3 (06:41→22:19)
[2020-09-06] MEDS: fentaNYL INJ 1,250 MCG in SODIUM CHLORIDE 0.9% 225 ML IV PRN (08:02)
[2020-09-06] MEDS ORDERED: AMIODARONE INJ 150 MG in DEXTROSE 5% 100 ML IV ONE (09:45)
[2020-09-06] MEDS: PIPERACILLIN/TAZOBACTAM 3,375 MG in SODIUM CHLORIDE 0.9% 100 ML IV SCH ×2 (09:52→18:08)
[2020-09-06] MEDS: PANTOPRAZOLE 40 MG VIAL IV SCH (09:54)
[2020-09-06] MEDS ORDERED: HYDROmorphone 2 MG/1 ML VIAL IV PRN ×2 (10:58→15:33)
[2020-09-06] MEDS: VANCOMYCIN INJ 1,250 MG in SODIUM CHLORIDE 0.9% 250 ML IV SCH (13:54)
[2020-09-06] MEDS: HYDROmorphone 2 MG/1 ML VIAL IV PRN ×3 (16:42→22:18)
[2020-09-06] MEDS ORDERED: fentaNYL 100 MCG/HR PATCH TRANSDERM SCH (16:46)
[2020-09-06] MEDS: DIAZEPAM 10 MG/2 ML SYRINGE IV PRN (17:16)
[2020-09-06] MEDS: METHOCARBAMOL INJ 500 MG in SODIUM CHLORIDE 0.9% 100 ML IV SCH (20:34)
[2020-09-06] MEDS: ACETAMINOPHEN INJ 1,000 MG in PREMIX 1 EACH IV SCH (22:19)
[2020-09-07] MEDS: HYDROmorphone 2 MG/1 ML VIAL IV PRN ×7 (00:49→20:58)
[2020-09-07] MEDS: DIAZEPAM 10 MG/2 ML SYRINGE IV PRN ×2 (00:51→06:10)
[2020-09-07] MEDS: PIPERACILLIN/TAZOBACTAM 3,375 MG in SODIUM CHLORIDE 0.9% 100 ML IV SCH ×3 (02:41→17:58)
[2020-09-07 04:52] LABS: ABG HCO3 25.3 MMOL/L (20-26); ABG Oxygen Saturation 94.6 % (95-100); ABG PCO2 43.1 MM HG (35-48); ABG PO2 76.3 MM HG (80-95); ABG TCO2 24.2 MMOL/L (23-27)
[2020-09-07 04:57] LABS: Hematocrit 26.3 VOL% (42.0-52.0); Hemoglobin 8.5 GM/DL (14.0-18.0); Immature Granulocytes % 0.6 %; Immature Granulocytes Absolute 0.03 #; Lymphocytes # 0.2 10*3/uL (1.4-4.0); Lymphocytes % 4.5 % (21.2-54.2); Mean Corpuscular HGB Conc 32.3 GM/DL (32-36); Mean Corpuscular Volume 98.9 FL (87-102); Mean Platelet Volume 9.5 FL (9.6-12.0); Monocytes % 4.1 % (1.7-12.7); Neutrophils % 90.8 % (38.7-73.9); Platelet Count 125 T/CUMM (130-400); Red Blood Count 2.66 MC/CUMM (3.8-5.5); Red Cell Distribution Width 14.2 % (9.3-17.3); White Blood Count 5.1 T/CUMM (4-12)
[2020-09-07 05:21] LABS: Band Neutrophils 4 % (0-10); Lymphocytes 4 % (20-55); Segmented Neutrophils 89 % (50-85); Total Cells Counted 100
[2020-09-07 05:22] LABS: Hypochromasia Slight; Platelet Estimate Normal
[2020-09-07 05:26] LABS: Albumin 1.8 G/DL (3.4-5.0); Bilirubin,Total 0.6 MG/DL (0.2-1.0); Calcium 8.8 MG/DL (8.5-10.1); Osmolality,Calculated 287.1 MOS/KG (273-304); Potassium 3.4 MMOL/L (3.5-5.1)
[2020-09-07] MEDS: METHOCARBAMOL INJ 500 MG in SODIUM CHLORIDE 0.9% 100 ML IV SCH ×3 (05:56→20:57)
[2020-09-07] MEDS: ACETAMINOPHEN INJ 1,000 MG in PREMIX 1 EACH IV SCH ×3 (06:42→20:59)
[2020-09-07] MEDS: DILTIAZEM INJ 100 MG in SODIUM CHLORIDE 0.9% 100 ML IV SCH (07:35)
[2020-09-07] MEDS: METOPROLOL TARTRATE 5 MG/5 ML VIAL IV SCH ×3 (08:38→20:53)
[2020-09-07] MEDS: LACTATED RINGERS 1,000 ML IV SCH ×2 (08:39→09:43)
[2020-09-07] MEDS ORDERED: METOPROLOL TARTRATE 5 MG/5 ML VIAL IV SCH (09:00)
[2020-09-07] MEDS: VANCOMYCIN INJ 1,250 MG in SODIUM CHLORIDE 0.9% 250 ML IV SCH (09:42)
[2020-09-07] MEDS: PANTOPRAZOLE 40 MG VIAL IV SCH (09:43)
[2020-09-07] MEDS: POTASSIUM CHLORIDE RIDER 10 MEQ in PREMIX 1 EACH IV SCH ×4 (09:43→13:12)
[2020-09-07] MEDS: DEXTROSE 5% LACTATED RINGERS 1,000 ML IV SCH ×2 (12:18→22:05)
[2020-09-07] MEDS: LORazepam 2 MG/1 ML VIAL IV PRN ×3 (12:19→23:22)
[2020-09-08] MEDS: HYDROmorphone 2 MG/1 ML VIAL IV PRN ×7 (01:40→22:02)
[2020-09-08] MEDS: DILTIAZEM INJ 100 MG in SODIUM CHLORIDE 0.9% 100 ML IV SCH (03:11)
[2020-09-08] MEDS: METOPROLOL TARTRATE 5 MG/5 ML VIAL IV SCH ×4 (03:40→20:20)
[2020-09-08] MEDS: VANCOMYCIN INJ 1,250 MG in SODIUM CHLORIDE 0.9% 250 ML IV SCH ×2 (03:45→22:01)
[2020-09-08] MEDS: PIPERACILLIN/TAZOBACTAM 3,375 MG in SODIUM CHLORIDE 0.9% 100 ML IV SCH ×3 (03:45→17:30)
[2020-09-08] MEDS: LORazepam 2 MG/1 ML VIAL IV PRN ×2 (03:55→08:24)
[2020-09-08 04:40] LABS: Eosinophils % 0.2 % (0.00-10.9); Hematocrit 27.9 VOL% (42.0-52.0); Immature Granulocytes % 1.2 %; Immature Granulocytes Absolute 0.06 #; Lymphocytes # 0.3 10*3/uL (1.4-4.0); Lymphocytes % 5.9 % (21.2-54.2); Mean Corpuscular HGB Conc 32.3 GM/DL (32-36); Mean Corpuscular Volume 97.6 FL (87-102); Mean Platelet Volume 9.3 FL (9.6-12.0); Monocytes % 4.3 % (1.7-12.7); Neutrophils % 88.4 % (38.7-73.9); Platelet Count 116 T/CUMM (130-400); Red Blood Count 2.86 MC/CUMM (3.8-5.5); Red Cell Distribution Width 14.1 % (9.3-17.3); White Blood Count 4.9 T/CUMM (4-12)
[2020-09-08 05:00] LABS: Albumin 1.9 G/DL (3.4-5.0); Bilirubin,Total 0.5 MG/DL (0.2-1.0); Calcium 8.4 MG/DL (8.5-10.1); Osmolality,Calculated 287.8 MOS/KG (273-304); Total Protein 5.1 G/DL (6.4-8.3)
[2020-09-08] MEDS: METHOCARBAMOL INJ 500 MG in SODIUM CHLORIDE 0.9% 100 ML IV SCH (05:02)
[2020-09-08] MEDS: POTASSIUM CHLORIDE RIDER 10 MEQ in PREMIX 1 EACH IV PRN ×10 (06:33→21:21)
[2020-09-08] MEDS: DEXTROSE 5% LACTATED RINGERS 1,000 ML IV SCH ×2 (06:33→07:01)
[2020-09-08 06:52] LABS: ABG Base Excess 4.2 MMOL/L (-2.5-2.5); ABG Oxygen Saturation 89.6 % (95-100); ABG PCO2 40.3 MM HG (35-48); ABG PH 7.456 (7.35-7.45); ABG PO2 56.7 MM HG (80-95); ABG TCO2 25.7 MMOL/L (23-27)
[2020-09-08] MEDS ORDERED: FUROSEMIDE 20 MG/2 ML VIAL IV ONE ×2 (07:10→14:00)
[2020-09-08] MEDS: PANTOPRAZOLE 40 MG VIAL IV SCH (08:23)
[2020-09-08] MEDS ORDERED: hydrALAZINE 20 MG/1 ML VIAL IV PRN (08:55)
[2020-09-08] MEDS: NICOTINE 14 MG/24 HR PATCH TRANSDERM SCH (09:36)
[2020-09-08] MEDS: ALBUTEROL 2.5 MG/3 ML NEB RESP TX SCH ×3 (09:41→19:35)
[2020-09-08] MEDS: AMIODARONE 200 MG TABLET PO SCH ×2 (15:18→20:30)
[2020-09-08] MEDS: SERTRALINE 50 MG TABLET PO SCH (15:18)
[2020-09-08] MEDS: tiZANidine 4 MG TABLET PO PRN (15:19)
[2020-09-08] MEDS: GABAPENTIN 50 MG/ML 30 ML/BOTTLE PO SCH ×2 (16:15→20:29)
[2020-09-08] MEDS: THEOPHYLLINE 5.33 MG/ML 30 ML/BOTTLE NG SCH ×2 (16:15→20:30)
[2020-09-08 18:05] LABS: Hematocrit 30.6 VOL% (42.0-52.0); Hemoglobin 10.2 GM/DL (14.0-18.0); Immature Granulocytes % 1.2 %; Immature Granulocytes Absolute 0.07 #; Lymphocytes # 0.4 10*3/uL (1.4-4.0); Lymphocytes % 6.5 % (21.2-54.2); Mean Corpuscular HGB Conc 33.3 GM/DL (32-36); Mean Corpuscular Volume 95.3 FL (87-102); Mean Platelet Volume 10.3 FL (9.6-12.0); Neutrophils % 87.3 % (38.7-73.9); Platelet Count 146 T/CUMM (130-400); Red Blood Count 3.21 MC/CUMM (3.8-5.5); Red Cell Distribution Width 13.9 % (9.3-17.3); White Blood Count 5.8 T/CUMM (4-12)
[2020-09-08 18:25] LABS: Calcium 8.4 MG/DL (8.5-10.1); Osmolality,Calculated 278.5 MOS/KG (273-304); Potassium 3.3 MMOL/L (3.5-5.1)
[2020-09-08] MEDS ORDERED: MAGNESIUM SULF RIDER 2 GM in PREMIX 1 EACH IV ONE (21:41)
[2020-09-08] MEDS ORDERED: POTASSIUM CHLORIDE 20 MEQ/15 ML UDCUP PER TUBE ONE (21:43)
[2020-09-08] MEDS: ZIPRASIDONE 20 MG/1 ML VIAL IM PRN (22:57)
[2020-09-09] MEDS: ALBUTEROL 2.5 MG/3 ML NEB RESP TX SCH ×4 (00:35→19:21)
[2020-09-09] MEDS: PIPERACILLIN/TAZOBACTAM 3,375 MG in SODIUM CHLORIDE 0.9% 100 ML IV SCH ×3 (01:52→18:58)
[2020-09-09] MEDS: HYDROmorphone 2 MG/1 ML VIAL IV PRN ×5 (01:53→23:50)
[2020-09-09] MEDS: LORazepam 2 MG/1 ML VIAL IV PRN ×5 (03:57→23:30)
[2020-09-09] MEDS: THEOPHYLLINE 5.33 MG/ML 30 ML/BOTTLE NG SCH ×4 (03:58→21:21)
[2020-09-09 04:34] LABS: Basophils % 0.1 % (0.0-0.8); Hematocrit 30.2 VOL% (42.0-52.0); Hemoglobin 10.1 GM/DL (14.0-18.0); Immature Granulocytes % 1.6 %; Immature Granulocytes Absolute 0.12 #; Lymphocytes # 0.9 10*3/uL (1.4-4.0); Lymphocytes % 11.8 % (21.2-54.2); Mean Corpuscular HGB Conc 33.4 GM/DL (32-36); Mean Corpuscular Volume 95.9 FL (87-102); Mean Platelet Volume 9.3 FL (9.6-12.0); Monocytes % 3.1 % (1.7-12.7); Neutrophils % 83.4 % (38.7-73.9); Platelet Count 133 T/CUMM (130-400); Red Blood Count 3.15 MC/CUMM (3.8-5.5); Red Cell Distribution Width 14.2 % (9.3-17.3); White Blood Count 7.4 T/CUMM (4-12)
[2020-09-09 04:58] LABS: Band Neutrophils 11 % (0-10); Hypochromasia 1+; Lymphocytes 12 % (20-55); Segmented Neutrophils 75 % (50-85); Total Cells Counted 100
[2020-09-09 04:59] LABS: Microcytosis 1+
[2020-09-09 05:00] LABS: Platelet Estimate Adequate
[2020-09-09] MEDS: METOPROLOL TARTRATE 5 MG/5 ML VIAL IV SCH ×3 (05:10→22:15)
[2020-09-09 05:44] LABS: Albumin 2.1 G/DL (3.4-5.0); Bilirubin,Total 0.6 MG/DL (0.2-1.0); Calcium 8.4 MG/DL (8.5-10.1); Osmolality,Calculated 289.7 MOS/KG (273-304); Potassium 2.9 MMOL/L (3.5-5.1); Total Protein 5.7 G/DL (6.4-8.3)
[2020-09-09] MEDS: POTASSIUM CHLORIDE 20 MEQ/15 ML UDCUP PER TUBE PRN ×3 (06:04→10:38)
[2020-09-09] MEDS: AMIODARONE 200 MG TABLET PO SCH ×2 (09:14→20:36)
[2020-09-09] MEDS: NICOTINE 14 MG/24 HR PATCH TRANSDERM SCH (09:14)
[2020-09-09] MEDS: PANTOPRAZOLE 40 MG VIAL IV SCH (09:19)
[2020-09-09] MEDS: GABAPENTIN 50 MG/ML 30 ML/BOTTLE PO SCH ×3 (09:20→21:21)
[2020-09-09] MEDS: SERTRALINE 50 MG TABLET PO SCH (09:24)
[2020-09-09] MEDS: VANCOMYCIN INJ 1,250 MG in SODIUM CHLORIDE 0.9% 250 ML IV SCH ×2 (09:27→23:40)
[2020-09-09] MEDS ORDERED: FOLIC ACID INJ 1 MG in SYRINGE 1 EACH IV SCH (10:00)
[2020-09-09] MEDS ORDERED: THIAMINE 200 MG/2 ML VIAL IV SCH (10:00)
[2020-09-09] MEDS: MULTIVITAMIN LIQUID (CENTRUM) 60 ML BOTTLE PO SCH (10:37)
[2020-09-09] MEDS: THIAMINE 100 MG TABLET PER TUBE SCH (10:37)
[2020-09-09] MEDS: RIFAXIMIN 550 MG TABLET PO SCH ×2 (10:38→20:36)
[2020-09-09] MEDS: FOLIC ACID 1 MG TABLET PER TUBE SCH (10:38)
[2020-09-09] MEDS: clonazePAM 0.5 MG TABLET PO SCH ×2 (10:38→20:36)
[2020-09-09] MEDS: POTASSIUM CHLORIDE INJ 20 MEQ, MAGNESIUM SULF INJ 2 GM in SODIUM CHLORIDE 0.45% 1,000 ML IV SCH (13:27)
[2020-09-09] MEDS: ZIPRASIDONE 20 MG/1 ML VIAL IM PRN (20:34)
[2020-09-10] MEDS: POTASSIUM CHLORIDE INJ 20 MEQ, MAGNESIUM SULF INJ 2 GM in SODIUM CHLORIDE 0.45% 1,000 ML IV SCH ×2 (00:20→08:54)
[2020-09-10] MEDS: ALBUTEROL 2.5 MG/3 ML NEB RESP TX SCH ×4 (01:00→18:56)
[2020-09-10] MEDS: LORazepam 2 MG/1 ML VIAL IV PRN ×4 (02:20→16:35)
[2020-09-10] MEDS: PIPERACILLIN/TAZOBACTAM 3,375 MG in SODIUM CHLORIDE 0.9% 100 ML IV SCH (03:05)
[2020-09-10] MEDS: THEOPHYLLINE 5.33 MG/ML 30 ML/BOTTLE NG SCH ×4 (03:18→20:50)
[2020-09-10 04:42] LABS: Albumin 1.9 G/DL (3.4-5.0); Bilirubin,Total 0.6 MG/DL (0.2-1.0); Calcium 8.4 MG/DL (8.5-10.1); Osmolality,Calculated 295.4 MOS/KG (273-304); Potassium 2.8 MMOL/L (3.5-5.1); Total Protein 5.6 G/DL (6.4-8.3)
[2020-09-10] MEDS: POTASSIUM CHLORIDE 20 MEQ/15 ML UDCUP PER TUBE PRN ×2 (05:20→09:05)
[2020-09-10] MEDS: METOPROLOL TARTRATE 5 MG/5 ML VIAL IV SCH ×3 (05:25→20:50)
[2020-09-10] MEDS: HYDROmorphone 2 MG/1 ML VIAL IV PRN ×5 (07:19→23:48)
[2020-09-10] MEDS: THIAMINE 100 MG TABLET PER TUBE SCH (08:35)
[2020-09-10] MEDS: RIFAXIMIN 550 MG TABLET PO SCH ×2 (08:35→20:50)
[2020-09-10] MEDS: clonazePAM 0.5 MG TABLET PO SCH ×2 (08:35→20:50)
[2020-09-10] MEDS: AMIODARONE 200 MG TABLET PO SCH ×2 (08:35→20:50)
[2020-09-10] MEDS: FOLIC ACID 1 MG TABLET PER TUBE SCH (08:35)
[2020-09-10] MEDS: NICOTINE 14 MG/24 HR PATCH TRANSDERM SCH (08:36)
[2020-09-10] MEDS: PANTOPRAZOLE 40 MG VIAL IV SCH (08:38)
[2020-09-10] MEDS: SERTRALINE 50 MG TABLET PO SCH (08:46)
[2020-09-10] MEDS: MULTIVITAMIN LIQUID (CENTRUM) 60 ML BOTTLE PO SCH (08:50)
[2020-09-10] MEDS: GABAPENTIN 50 MG/ML 30 ML/BOTTLE PO SCH ×3 (09:00→20:50)
[2020-09-10] MEDS ORDERED: methylPREDNISolone SOD SUC 125 MG/2 ML VIAL IV SCH (10:00)
[2020-09-10] MEDS ORDERED: REMDESIVIR 200 MG in SODIUM CHLORIDE 0.9% 210 ML IV ONE (11:00)
[2020-09-10] MEDS ORDERED: GLUCAGON 1 MG VIAL IM PRN (11:04)
[2020-09-10] MEDS ORDERED: DEXTROSE 50% 25 GM/50 ML VIAL IV PRN (11:04)
[2020-09-10] MEDS: ENOXAPARIN 60 MG/0.6 ML SYRINGE SUBCUT SCH ×2 (11:09→21:00)
[2020-09-10] MEDS: ASCORBIC ACID 500 MG TABLET PO SCH ×2 (11:09→20:50)
[2020-09-10] MEDS: CETIRIZINE 10 MG TABLET PO SCH (11:09)
[2020-09-10] MEDS: ZINC GLUCONATE 50 MG TABLET PO SCH (11:09)
[2020-09-10] MEDS: DEXAMETHASONE 4 MG/1 ML VIAL IV SCH (11:12)
[2020-09-10] MEDS: FAMOTIDINE 20 MG/2 ML VIAL IV SCH ×2 (11:16→22:53)
[2020-09-10] MEDS: MEROPENEM 500 MG in SODIUM CHLORIDE 0.9% 100 ML IV SCH ×3 (11:19→23:00)
[2020-09-10 11:21] LABS: Ferritin 904.7 ng/ml (26-388)
[2020-09-10 11:45] LABS: INR 1.1; PT Patient Result 11.8 SECS (9.8-11.9)
[2020-09-10] MEDS ORDERED: SODIUM CHLORIDE 0.9% 1,000 ML IV PRN (13:15)
[2020-09-10] MEDS: INSULIN REGULAR 100 UNIT/ML SUBCUT SCH ×2 (13:41→18:27)
[2020-09-10] MEDS ORDERED: POTASSIUM CHLORIDE 20 MEQ/15 ML UDCUP PER TUBE ONE (15:00)
[2020-09-10] MEDS ORDERED: LORazepam 2 MG/1 ML VIAL ONE (16:32)
[2020-09-10 18:19] VITALS: BP 144/72
[2020-09-11] MEDS: INSULIN REGULAR 100 UNIT/ML SUBCUT SCH ×4 (00:07→18:57)
[2020-09-11] MEDS: ALBUTEROL 2.5 MG/3 ML NEB RESP TX SCH ×2 (01:00→07:59)
[2020-09-11] MEDS: LORazepam 2 MG/1 ML VIAL IV PRN ×4 (03:05→17:14)
[2020-09-11] MEDS: THEOPHYLLINE 5.33 MG/ML 30 ML/BOTTLE NG SCH ×4 (03:26→20:17)
[2020-09-11 03:56] LABS: ABG Base Excess 3.2 MMOL/L (-2.5-2.5); ABG HCO3 27.3 MMOL/L (20-26); ABG Oxygen Saturation 96.4 % (95-100); ABG PCO2 39.2 MM HG (35-48); ABG PH 7.451 (7.35-7.45); ABG PO2 82.4 MM HG (80-95); ABG TCO2 24.9 MMOL/L (23-27)
[2020-09-11] MEDS: MEROPENEM 500 MG in SODIUM CHLORIDE 0.9% 100 ML IV SCH ×4 (04:20→21:18)
[2020-09-11] MEDS: METOPROLOL TARTRATE 5 MG/5 ML VIAL IV SCH ×3 (05:05→20:17)
[2020-09-11 06:37] LABS: Basophils % 0.1 % (0.0-0.8); Hematocrit 29.6 VOL% (42.0-52.0); Hemoglobin 9.9 GM/DL (14.0-18.0); Immature Granulocytes % 1.2 %; Immature Granulocytes Absolute 0.15 #; Lymphocytes % 8.3 % (21.2-54.2); Mean Corpuscular HGB Conc 33.4 GM/DL (32-36); Mean Corpuscular Volume 96.7 FL (87-102); Monocytes % 1.6 % (1.7-12.7); NRBC # 0.03 10*3/uL; Neutrophils % 88.8 % (38.7-73.9); Platelet Count 112 T/CUMM (130-400); Red Blood Count 3.06 MC/CUMM (3.8-5.5); Red Cell Distribution Width 15.1 % (9.3-17.3); White Blood Count 12.6 T/CUMM (4-12)
[2020-09-11 07:04] LABS: Albumin 1.7 G/DL (3.4-5.0); Bilirubin,Total 0.6 MG/DL (0.2-1.0); Calcium 8.6 MG/DL (8.5-10.1); Ferritin 1027.6 ng/ml (26-388); Osmolality,Calculated 302.3 MOS/KG (273-304); Potassium 3.3 MMOL/L (3.5-5.1); Total Protein 5.2 G/DL (6.4-8.3)
[2020-09-11] MEDS: HYDROmorphone 2 MG/1 ML VIAL IV PRN ×4 (07:32→19:19)
[2020-09-11 08:04] LABS: Band Neutrophils 2 % (0-10); Hypochromasia 1+; Lymphocytes 5 % (20-55); Metamyelocytes 1 %; Segmented Neutrophils 91 % (50-85); Total Cells Counted 100
[2020-09-11 08:05] LABS: Microcytosis 1+
[2020-09-11] MEDS ORDERED: LORazepam 2 MG/1 ML VIAL IV ONE (08:52)
[2020-09-11] MEDS: MULTIVITAMIN LIQUID (CENTRUM) 60 ML BOTTLE PO SCH (09:11)
[2020-09-11] MEDS: FOLIC ACID 1 MG TABLET PER TUBE SCH (09:11)
[2020-09-11] MEDS: AMIODARONE 200 MG TABLET PO SCH ×2 (09:12→20:16)
[2020-09-11] MEDS: CETIRIZINE 10 MG TABLET PO SCH (09:12)
[2020-09-11] MEDS: THIAMINE 100 MG TABLET PER TUBE SCH (09:12)
[2020-09-11] MEDS: ASCORBIC ACID 500 MG TABLET PO SCH ×2 (09:12→20:16)
[2020-09-11] MEDS: SERTRALINE 50 MG TABLET PO SCH (09:12)
[2020-09-11] MEDS: RIFAXIMIN 550 MG TABLET PO SCH ×2 (09:13→20:16)
[2020-09-11] MEDS: ZINC GLUCONATE 50 MG TABLET PO SCH (09:13)
[2020-09-11] MEDS: clonazePAM 0.5 MG TABLET PO SCH ×2 (09:13→20:16)
[2020-09-11] MEDS: DEXAMETHASONE 4 MG/1 ML VIAL IV SCH (09:14)
[2020-09-11] MEDS: GABAPENTIN 50 MG/ML 30 ML/BOTTLE PO SCH ×3 (09:15→20:19)
[2020-09-11] MEDS: REMDESIVIR 100 MG in SODIUM CHLORIDE 0.9% 100 ML IV SCH (09:17)
[2020-09-11] MEDS: ENOXAPARIN 60 MG/0.6 ML SYRINGE SUBCUT SCH ×2 (09:20→21:19)
[2020-09-11] MEDS: NICOTINE 14 MG/24 HR PATCH TRANSDERM SCH (09:20)
[2020-09-11] MEDS: FAMOTIDINE 20 MG/2 ML VIAL IV SCH ×3 (10:02→23:02)
[2020-09-11] MEDS ORDERED: FUROSEMIDE 40 MG/4 ML VIAL IV ONE (10:04)
[2020-09-11] MEDS: tiZANidine 4 MG TABLET PO PRN (20:16)
[2020-09-11] MEDS: ZIPRASIDONE 20 MG/1 ML VIAL IM PRN (20:19)
[2020-09-11 22:46] LABS: Protein/Creatinine Ratio,Urine 0.8 RATIO
[2020-09-12] MEDS: INSULIN REGULAR 100 UNIT/ML SUBCUT SCH ×4 (01:08→18:08)
[2020-09-12] MEDS: HYDROmorphone 2 MG/1 ML VIAL IV PRN ×6 (02:58→22:27)
[2020-09-12] MEDS: LORazepam 2 MG/1 ML VIAL IV PRN ×5 (02:58→22:28)
[2020-09-12] MEDS: THEOPHYLLINE 5.33 MG/ML 30 ML/BOTTLE NG SCH ×4 (03:01→20:15)
[2020-09-12] MEDS: MEROPENEM 500 MG in SODIUM CHLORIDE 0.9% 100 ML IV SCH ×4 (03:01→22:00)
[2020-09-12] MEDS: METOPROLOL TARTRATE 5 MG/5 ML VIAL IV SCH ×3 (06:13→20:16)
[2020-09-12 06:20] LABS: Albumin 1.8 G/DL (3.4-5.0); Bilirubin,Total 0.7 MG/DL (0.2-1.0); Calcium 8.9 MG/DL (8.5-10.1); Ferritin 900.7 ng/ml (26-388); Osmolality,Calculated 315.6 MOS/KG (273-304); Potassium 3.4 MMOL/L (3.5-5.1); Total Protein 5.5 G/DL (6.4-8.3)
[2020-09-12] MEDS ORDERED: LORazepam 2 MG/1 ML VIAL ONE ×2 (08:25→12:18)
[2020-09-12] MEDS: GABAPENTIN 50 MG/ML 30 ML/BOTTLE PO SCH ×3 (08:46→20:16)
[2020-09-12] MEDS: MULTIVITAMIN LIQUID (CENTRUM) 60 ML BOTTLE PO SCH (08:47)
[2020-09-12] MEDS: SERTRALINE 50 MG TABLET PO SCH (08:48)
[2020-09-12] MEDS: FOLIC ACID 1 MG TABLET PER TUBE SCH (08:48)
[2020-09-12] MEDS: THIAMINE 100 MG TABLET PER TUBE SCH (08:48)
[2020-09-12] MEDS: ZINC GLUCONATE 50 MG TABLET PO SCH (08:48)
[2020-09-12] MEDS: AMIODARONE 200 MG TABLET PO SCH ×2 (08:48→20:15)
[2020-09-12] MEDS: tiZANidine 4 MG TABLET PO PRN ×2 (08:48→20:14)
[2020-09-12] MEDS: ASCORBIC ACID 500 MG TABLET PO SCH ×2 (08:48→20:15)
[2020-09-12] MEDS: clonazePAM 0.5 MG TABLET PO SCH ×2 (08:48→20:15)
[2020-09-12] MEDS: DEXAMETHASONE 4 MG/1 ML VIAL IV SCH (08:51)
[2020-09-12] MEDS: NICOTINE 14 MG/24 HR PATCH TRANSDERM SCH (08:52)
[2020-09-12] MEDS: REMDESIVIR 100 MG in SODIUM CHLORIDE 0.9% 100 ML IV SCH (08:55)
[2020-09-12] MEDS: RIFAXIMIN 550 MG TABLET PO SCH ×2 (09:00→20:15)
[2020-09-12] MEDS: ENOXAPARIN 60 MG/0.6 ML SYRINGE SUBCUT SCH ×2 (09:01→20:14)
[2020-09-12] MEDS: FAMOTIDINE 20 MG/2 ML VIAL IV SCH ×2 (09:49→20:13)
[2020-09-12] MEDS: DEXTROSE 5% 1,000 ML IV SCH (11:32)
[2020-09-12] MEDS: POTASSIUM CHLORIDE RIDER 10 MEQ in PREMIX 1 EACH IV PRN ×2 (11:34→14:05)
[2020-09-12 11:36] LABS: Basophils % 0.1 % (0.0-0.8); Eosinophils % 0.1 % (0.00-10.9); Hematocrit 26.4 VOL% (42.0-52.0); Hemoglobin 8.7 GM/DL (14.0-18.0); Immature Granulocytes % 0.6 %; Immature Granulocytes Absolute 0.07 #; Lymphocytes # 0.6 10*3/uL (1.4-4.0); Lymphocytes % 5.4 % (21.2-54.2); Mean Corpuscular Volume 97.4 FL (87-102); Mean Platelet Volume 10.8 FL (9.6-12.0); Monocytes % 1.5 % (1.7-12.7); Neutrophils % 92.3 % (38.7-73.9); Platelet Count 146 T/CUMM (130-400); Red Blood Count 2.71 MC/CUMM (3.8-5.5); Red Cell Distribution Width 15.4 % (9.3-17.3); White Blood Count 10.8 T/CUMM (4-12)
[2020-09-12 11:58] LABS: Band Neutrophils 6 % (0-10); Lymphocytes 3 % (20-55); Nucleated Red Blood Cells 1 (0-5); Platelet Estimate Adequate; Segmented Neutrophils 89 % (50-85); Total Cells Counted 100
[2020-09-12 11:59] LABS: Anisocytosis 2+; Macrocytosis 1+
[2020-09-12 18:01] LABS: Calcium 8.5 MG/DL (8.5-10.1); Osmolality,Calculated 313.6 MOS/KG (273-304); Potassium 3.4 MMOL/L (3.5-5.1)
[2020-09-12] MEDS: ZIPRASIDONE 20 MG/1 ML VIAL IM PRN (20:14)
[2020-09-13] MEDS: INSULIN REGULAR 100 UNIT/ML SUBCUT SCH ×5 (00:14→23:34)
[2020-09-13] MEDS: THEOPHYLLINE 5.33 MG/ML 30 ML/BOTTLE NG SCH ×4 (02:00→20:13)
[2020-09-13] MEDS: POTASSIUM CHLORIDE 20 MEQ/15 ML UDCUP PER TUBE PRN ×2 (02:01→04:04)
[2020-09-13] MEDS: LORazepam 2 MG/1 ML VIAL IV PRN ×4 (02:33→16:58)
[2020-09-13] MEDS: HYDROmorphone 2 MG/1 ML VIAL IV PRN ×4 (02:33→16:57)
[2020-09-13] MEDS: MEROPENEM 500 MG in SODIUM CHLORIDE 0.9% 100 ML IV SCH ×4 (04:03→21:51)
[2020-09-13] MEDS: METOPROLOL TARTRATE 5 MG/5 ML VIAL IV SCH ×3 (04:03→20:11)
[2020-09-13 04:21] LABS: ABG Base Excess 4.6 MMOL/L (-2.5-2.5); ABG HCO3 28.5 MMOL/L (20-26); ABG Oxygen Saturation 92.7 % (95-100); ABG PCO2 42.8 MM HG (35-48); ABG PH 7.441 (7.35-7.45); Allen Test Positive; Pt O2 Delivery Device Other
[2020-09-13 04:51] LABS: Basophils % 0.1 % (0.0-0.8); Eosinophils % 0.2 % (0.00-10.9); Hemoglobin 8.6 GM/DL (14.0-18.0); Immature Granulocytes % 0.8 %; Immature Granulocytes Absolute 0.11 #; Lymphocytes # 0.8 10*3/uL (1.4-4.0); Lymphocytes % 5.8 % (21.2-54.2); Mean Corpuscular HGB Conc 31.9 GM/DL (32-36); Mean Corpuscular Volume 98.5 FL (87-102); Mean Platelet Volume 11.1 FL (9.6-12.0); Neutrophils % 92.1 % (38.7-73.9); Platelet Count 157 T/CUMM (130-400); Red Blood Count 2.74 MC/CUMM (3.8-5.5); Red Cell Distribution Width 15.2 % (9.3-17.3); White Blood Count 13.2 T/CUMM (4-12)
[2020-09-13 05:11] LABS: Albumin 1.5 G/DL (3.4-5.0); Bilirubin,Total 0.9 MG/DL (0.2-1.0); Calcium 8.4 MG/DL (8.5-10.1); Ferritin 780.9 ng/ml (26-388); Osmolality,Calculated 309.7 MOS/KG (273-304); Potassium 4.4 MMOL/L (3.5-5.1)
[2020-09-13] MEDS ORDERED: LORazepam 2 MG/1 ML VIAL ONE ×3 (07:44→16:48)
[2020-09-13] MEDS: DEXTROSE 5% 1,000 ML IV SCH (08:01)
[2020-09-13 08:06] LABS: Band Neutrophils 1 % (0-10); Lymphocytes 9 % (20-55); Segmented Neutrophils 88 % (50-85); Total Cells Counted 100
[2020-09-13 08:07] LABS: Platelet Estimate Adequate
[2020-09-13] MEDS: FAMOTIDINE 20 MG/2 ML VIAL IV SCH ×2 (09:12→20:10)
[2020-09-13] MEDS: NICOTINE 14 MG/24 HR PATCH TRANSDERM SCH (09:12)
[2020-09-13] MEDS: ENOXAPARIN 60 MG/0.6 ML SYRINGE SUBCUT SCH ×2 (09:12→20:10)
[2020-09-13] MEDS: DEXAMETHASONE 4 MG/1 ML VIAL IV SCH (09:13)
[2020-09-13] MEDS: THIAMINE 100 MG TABLET PER TUBE SCH (09:14)
[2020-09-13] MEDS: ZINC GLUCONATE 50 MG TABLET PO SCH (09:14)
[2020-09-13] MEDS: AMIODARONE 200 MG TABLET PO SCH ×2 (09:14→20:11)
[2020-09-13] MEDS: ASCORBIC ACID 500 MG TABLET PO SCH ×2 (09:14→20:11)
[2020-09-13] MEDS: SERTRALINE 50 MG TABLET PO SCH (09:14)
[2020-09-13] MEDS: clonazePAM 0.5 MG TABLET PO SCH ×2 (09:14→20:11)
[2020-09-13] MEDS: RIFAXIMIN 550 MG TABLET PO SCH ×2 (09:14→20:11)
[2020-09-13] MEDS: FOLIC ACID 1 MG TABLET PER TUBE SCH (09:14)
[2020-09-13] MEDS: GABAPENTIN 50 MG/ML 30 ML/BOTTLE PO SCH ×3 (09:15→20:13)
[2020-09-13] MEDS: REMDESIVIR 100 MG in SODIUM CHLORIDE 0.9% 100 ML IV SCH (09:38)
[2020-09-13] MEDS: tiZANidine 4 MG TABLET PO PRN (09:38)
[2020-09-13] MEDS: MULTIVITAMIN LIQUID (CENTRUM) 60 ML BOTTLE PO SCH (09:41)
[2020-09-13] MEDS ORDERED: ETOMIDATE 20 MG/10 ML VIAL IV ONE ×2 (13:14→13:18)
[2020-09-13] MEDS ORDERED: SUCCINYLCHOLINE 200 MG/10 ML VIAL ONE (13:15)
[2020-09-13] MEDS ORDERED: SUCCINYLCHOLINE 200 MG/10 ML VIAL IV ONE (13:18)
[2020-09-13 16:58] LABS: ABG Base Excess 2.6 MMOL/L (-2.5-2.5); ABG HCO3 26.8 MMOL/L (20-26); ABG Oxygen Saturation 99.2 % (95-100); ABG PCO2 54.4 MM HG (35-48); ABG PH 7.337 (7.35-7.45); ABG TCO2 27.4 MMOL/L (23-27); Allen Test Positive; Pt O2 Delivery Device Ventilator
[2020-09-13] MEDS: MIDAZOLAM 100 MG in SODIUM CHLORIDE 0.9% 80 ML IV PRN (20:12)
[2020-09-13] MEDS: fentaNYL INJ 1,250 MCG in SODIUM CHLORIDE 0.9% 225 ML IV PRN (20:12)
[2020-09-14] MEDS: fentaNYL INJ 1,250 MCG in SODIUM CHLORIDE 0.9% 225 ML IV PRN (01:23)
[2020-09-14] MEDS: DEXTROSE 5% 1,000 ML IV SCH ×2 (02:15→22:29)
[2020-09-14] MEDS: THEOPHYLLINE 5.33 MG/ML 30 ML/BOTTLE NG SCH ×4 (02:16→20:34)
[2020-09-14] MEDS: fentaNYL INJ 2,500 MCG in SODIUM CHLORIDE 0.9% 450 ML IV PRN ×2 (04:02→09:45)
[2020-09-14 04:44] LABS: Allen Test Positive; Pt O2 Delivery Device Ventilator
[2020-09-14 04:56] LABS: ABG Base Excess 2.4 MMOL/L (-2.5-2.5); ABG HCO3 26.5 MMOL/L (20-26); ABG Oxygen Saturation 96.2 % (95-100); ABG PH 7.308 (7.35-7.45); ABG PO2 93.3 MM HG (80-95); ABG TCO2 27.5 MMOL/L (23-27)
[2020-09-14] MEDS: MEROPENEM 500 MG in SODIUM CHLORIDE 0.9% 100 ML IV SCH ×4 (05:42→22:28)
[2020-09-14] MEDS: METOPROLOL TARTRATE 5 MG/5 ML VIAL IV SCH ×3 (05:43→20:33)
[2020-09-14 06:25] LABS: Basophils % 0.1 % (0.0-0.8); Eosinophils # 0.1 10*3/uL (0.0-0.87); Eosinophils % 0.7 % (0.00-10.9); Hematocrit 27.3 VOL% (42.0-52.0); Hemoglobin 8.3 GM/DL (14.0-18.0); Immature Granulocytes % 1.8 %; Immature Granulocytes Absolute 0.21 #; Lymphocytes # 0.8 10*3/uL (1.4-4.0); Lymphocytes % 6.7 % (21.2-54.2); Mean Corpuscular HGB Conc 30.4 GM/DL (32-36); Mean Corpuscular Volume 102.6 FL (87-102); Mean Platelet Volume 11.4 FL (9.6-12.0); Neutrophils % 89.7 % (38.7-73.9); Platelet Count 179 T/CUMM (130-400); Red Blood Count 2.66 MC/CUMM (3.8-5.5); Red Cell Distribution Width 15.3 % (9.3-17.3); White Blood Count 11.4 T/CUMM (4-12)
[2020-09-14] MEDS: INSULIN REGULAR 100 UNIT/ML SUBCUT SCH ×4 (06:32→23:44)
[2020-09-14 06:53] LABS: Hypochromasia 1+; Lymphocytes 5 % (20-55); Microcytosis 1+; Platelet Estimate Adequate; Segmented Neutrophils 93 % (50-85); Total Cells Counted 100
[2020-09-14 07:07] LABS: Albumin 1.6 G/DL (3.4-5.0); Calcium 8.4 MG/DL (8.5-10.1); Ferritin 864.5 ng/ml (26-388); Osmolality,Calculated 298.4 MOS/KG (273-304); Total Protein 5.3 G/DL (6.4-8.3)
[2020-09-14] MEDS: MIDAZOLAM 100 MG in SODIUM CHLORIDE 0.9% 80 ML IV PRN (07:40)
[2020-09-14] MEDS: MULTIVITAMIN LIQUID (CENTRUM) 60 ML BOTTLE PO SCH (08:17)
[2020-09-14] MEDS: GABAPENTIN 50 MG/ML 30 ML/BOTTLE PO SCH ×3 (08:17→20:34)
[2020-09-14] MEDS: ENOXAPARIN 60 MG/0.6 ML SYRINGE SUBCUT SCH ×2 (08:19→20:32)
[2020-09-14] MEDS: FAMOTIDINE 20 MG/2 ML VIAL IV SCH ×2 (08:20→20:33)
[2020-09-14] MEDS: NICOTINE 14 MG/24 HR PATCH TRANSDERM SCH (08:20)
[2020-09-14] MEDS: clonazePAM 0.5 MG TABLET PO SCH (08:21)
[2020-09-14] MEDS: AMIODARONE 200 MG TABLET PO SCH ×2 (08:21→20:34)
[2020-09-14] MEDS: THIAMINE 100 MG TABLET PER TUBE SCH (08:21)
[2020-09-14] MEDS: FOLIC ACID 1 MG TABLET PER TUBE SCH (08:21)
[2020-09-14] MEDS: ZINC GLUCONATE 50 MG TABLET PO SCH (08:21)
[2020-09-14] MEDS: RIFAXIMIN 550 MG TABLET PO SCH ×2 (08:21→20:34)
[2020-09-14] MEDS: ASCORBIC ACID 500 MG TABLET PO SCH ×2 (08:21→20:33)
[2020-09-14] MEDS: DEXAMETHASONE 4 MG/1 ML VIAL IV SCH (08:21)
[2020-09-14] MEDS: SERTRALINE 50 MG TABLET PO SCH (08:22)
[2020-09-14] MEDS: ACETAMINOPHEN 325 MG TABLET PO PRN (09:15)
[2020-09-14] MEDS: REMDESIVIR 100 MG in SODIUM CHLORIDE 0.9% 100 ML IV SCH (09:54)
[2020-09-14] MEDS: METOCLOPRAMIDE 10 MG/2 ML VIAL IV SCH ×3 (12:20→23:45)
[2020-09-14] MEDS ORDERED: clonazePAM 0.5 MG TABLET PO PRN (18:26)
[2020-09-15 01:41] LABS: ABG Base Excess 3.6 MMOL/L (-2.5-2.5); ABG HCO3 27.5 MMOL/L (20-26); ABG Oxygen Saturation 87.9 % (95-100); ABG PCO2 61.7 MM HG (35-48); ABG PH 7.314 (7.35-7.45); ABG PO2 58.3 MM HG (80-95); ABG TCO2 28.8 MMOL/L (23-27)
[2020-09-15] MEDS: THEOPHYLLINE 5.33 MG/ML 30 ML/BOTTLE NG SCH ×4 (02:51→20:10)
[2020-09-15] MEDS: MEROPENEM 500 MG in SODIUM CHLORIDE 0.9% 100 ML IV SCH ×4 (04:19→21:00)
[2020-09-15] MEDS: METOPROLOL TARTRATE 5 MG/5 ML VIAL IV SCH ×3 (04:19→20:12)
[2020-09-15 05:07] LABS: Eosinophils % 0.4 % (0.00-10.9); Hematocrit 23.7 VOL% (42.0-52.0); Hemoglobin 7.3 GM/DL (14.0-18.0); Immature Granulocytes % 1.4 %; Lymphocytes # 0.5 10*3/uL (1.4-4.0); Lymphocytes % 6.3 % (21.2-54.2); Mean Corpuscular HGB Conc 30.8 GM/DL (32-36); Mean Corpuscular Volume 100.4 FL (87-102); Mean Platelet Volume 11.2 FL (9.6-12.0); Monocytes % 1.3 % (1.7-12.7); Neutrophils % 90.6 % (38.7-73.9); Platelet Count 178 T/CUMM (130-400); Red Blood Count 2.36 MC/CUMM (3.8-5.5); Red Cell Distribution Width 14.8 % (9.3-17.3); White Blood Count 7.1 T/CUMM (4-12)
[2020-09-15 05:15] LABS: ABG Base Excess 3.6 MMOL/L (-2.5-2.5); ABG HCO3 27.7 MMOL/L (20-26); ABG Oxygen Saturation 96.8 % (95-100); ABG PCO2 60.1 MM HG (35-48); ABG PH 7.317 (7.35-7.45); ABG PO2 91.7 MM HG (80-95)
[2020-09-15 05:40] LABS: Eosinophils 1 % (0-10); Hypochromasia 1+; Lymphocytes 3 % (20-55); Microcytosis 1+; Platelet Estimate Adequate; Segmented Neutrophils 96 % (50-85); Total Cells Counted 100
[2020-09-15] MEDS: fentaNYL INJ 2,500 MCG in SODIUM CHLORIDE 0.9% 450 ML IV PRN ×3 (06:00→23:19)
[2020-09-15] MEDS: METOCLOPRAMIDE 10 MG/2 ML VIAL IV SCH ×3 (06:01→18:04)
[2020-09-15] MEDS: INSULIN REGULAR 100 UNIT/ML SUBCUT SCH ×3 (06:02→18:04)
[2020-09-15 07:40] LABS: Alanine Aminotransferase 28 U/L (16-61); Albumin 1.2 G/DL (3.4-5.0); Alkaline Phosphatase 115 U/L (45-117); Aspartate Amino Transferase 71 U/L (0-37); Bilirubin,Total < 0.39 MG/DL (0.2-1.0); Blood Urea Nitrogen 26 MG/DL (7-18); Calcium 8.5 MG/DL (8.5-10.1); Carbon Dioxide 29 MMOL/L (21-32); Estimated Glom Filtration Rate 115 ML/MIN; Ferritin 884.8 ng/ml (26-388); Glucose 150 MG/DL (74-106); Osmolality,Calculated 295.7 MOS/KG (273-304); Potassium 4.3 MMOL/L (3.5-5.1); Sodium 145 MMOL/L (136-145); Total Protein 4.8 G/DL (6.4-8.3)
[2020-09-15] MEDS: DEXAMETHASONE 4 MG/1 ML VIAL IV SCH (08:12)
[2020-09-15] MEDS: FAMOTIDINE 20 MG/2 ML VIAL IV SCH ×2 (08:12→20:10)
[2020-09-15] MEDS: ENOXAPARIN 60 MG/0.6 ML SYRINGE SUBCUT SCH ×2 (08:12→20:09)
[2020-09-15] MEDS: ASCORBIC ACID 500 MG TABLET PO SCH ×2 (08:13→20:09)
[2020-09-15] MEDS: FOLIC ACID 1 MG TABLET PER TUBE SCH (08:13)
[2020-09-15] MEDS: NICOTINE 14 MG/24 HR PATCH TRANSDERM SCH (08:13)
[2020-09-15] MEDS: THIAMINE 100 MG TABLET PER TUBE SCH (08:13)
[2020-09-15] MEDS: SERTRALINE 50 MG TABLET PO SCH (08:13)
[2020-09-15] MEDS: ZINC GLUCONATE 50 MG TABLET PO SCH (08:13)
[2020-09-15] MEDS: MULTIVITAMIN LIQUID (CENTRUM) 60 ML BOTTLE PO SCH (08:13)
[2020-09-15] MEDS: RIFAXIMIN 550 MG TABLET PO SCH ×2 (08:13→20:09)
[2020-09-15] MEDS: AMIODARONE 200 MG TABLET PO SCH ×2 (08:13→20:09)
[2020-09-15] MEDS: GABAPENTIN 50 MG/ML 30 ML/BOTTLE PO SCH ×3 (08:13→20:12)
[2020-09-15] MEDS: ACETAMINOPHEN 325 MG TABLET PO PRN (12:50)
[2020-09-15] MEDS ORDERED: FUROSEMIDE 40 MG/4 ML VIAL IV ONE (13:57)
[2020-09-15] MEDS ORDERED: NOREPINEPHRINE 8 MG in SODIUM CHLORIDE 0.9% 242 ML IV PRN (18:31)
[2020-09-15] MEDS: DEXTROSE 5% 1,000 ML IV SCH (20:08)
[2020-09-15] MEDS: clonazePAM 0.5 MG TABLET PO SCH (20:11)
[2020-09-16] MEDS: INSULIN REGULAR 100 UNIT/ML SUBCUT SCH ×4 (00:19→18:17)
[2020-09-16] MEDS: METOCLOPRAMIDE 10 MG/2 ML VIAL IV SCH ×4 (00:19→18:07)
[2020-09-16] MEDS: THEOPHYLLINE 5.33 MG/ML 30 ML/BOTTLE NG SCH ×4 (02:18→21:22)
[2020-09-16] MEDS: MEROPENEM 500 MG in SODIUM CHLORIDE 0.9% 100 ML IV SCH ×4 (04:00→21:33)
[2020-09-16] MEDS: METOPROLOL TARTRATE 5 MG/5 ML VIAL IV SCH ×3 (04:03→21:23)
[2020-09-16 04:28] LABS: ABG HCO3 29.8 MMOL/L (20-26); ABG Oxygen Saturation 97.8 % (95-100); ABG PCO2 66.9 MM HG (35-48); ABG PH 7.311 (7.35-7.45); ABG TCO2 31.6 MMOL/L (23-27); Allen Test Positive; Pt O2 Delivery Device Ventilator
[2020-09-16 04:48] LABS: Eosinophils # 0.1 10*3/uL (0.0-0.87); Hematocrit 24.4 VOL% (42.0-52.0); Hemoglobin 7.7 GM/DL (14.0-18.0); Immature Granulocytes % 0.5 %; Immature Granulocytes Absolute 0.03 #; Lymphocytes # 0.6 10*3/uL (1.4-4.0); Lymphocytes % 9.2 % (21.2-54.2); Mean Corpuscular HGB Conc 31.6 GM/DL (32-36); Mean Corpuscular Volume 102.1 FL (87-102); Mean Platelet Volume 11.2 FL (9.6-12.0); Monocytes % 1.3 % (1.7-12.7); Platelet Count 193 T/CUMM (130-400); Red Blood Count 2.39 MC/CUMM (3.8-5.5); Red Cell Distribution Width 14.6 % (9.3-17.3); White Blood Count 6.1 T/CUMM (4-12)
[2020-09-16 05:11] LABS: Band Neutrophils 3 % (0-10); Eosinophils 1 % (0-10); Lymphocytes 9 % (20-55); Segmented Neutrophils 85 % (50-85); Total Cells Counted 100
[2020-09-16 05:12] LABS: Hypochromasia 1+
[2020-09-16 05:13] LABS: Microcytosis 1+; Platelet Estimate Adequate
[2020-09-16 05:14] LABS: Alanine Aminotransferase 41 U/L (16-61); Albumin 1.3 G/DL (3.4-5.0); Alkaline Phosphatase 120 U/L (45-117); Aspartate Amino Transferase 237 U/L (0-37); Bilirubin,Total < 0.39 MG/DL (0.2-1.0); Blood Urea Nitrogen 27 MG/DL (7-18); Calcium 8.4 MG/DL (8.5-10.1); Carbon Dioxide 34 MMOL/L (21-32); Estimated Glom Filtration Rate 115 ML/MIN; Glucose 175 MG/DL (74-106); Osmolality,Calculated 291.1 MOS/KG (273-304); Potassium 4.5 MMOL/L (3.5-5.1); Sodium 142 MMOL/L (136-145); Total Protein 5.4 G/DL (6.4-8.3)
[2020-09-16] MEDS ORDERED: DIGOXIN 0.5 MG/2 ML AMP IV ONE (06:09)
[2020-09-16] MEDS ORDERED: METOPROLOL TARTRATE 5 MG/5 ML VIAL IV ONE (06:20)
[2020-09-16] MEDS: fentaNYL INJ 2,500 MCG in SODIUM CHLORIDE 0.9% 450 ML IV PRN ×2 (06:45→15:46)
[2020-09-16] MEDS: MULTIVITAMIN LIQUID (CENTRUM) 60 ML BOTTLE PO SCH (08:10)
[2020-09-16] MEDS: ENOXAPARIN 60 MG/0.6 ML SYRINGE SUBCUT SCH ×2 (08:11→21:23)
[2020-09-16] MEDS: GABAPENTIN 50 MG/ML 30 ML/BOTTLE PO SCH ×3 (08:11→21:23)
[2020-09-16] MEDS: DEXAMETHASONE 4 MG/1 ML VIAL IV SCH ×3 (08:13→18:08)
[2020-09-16] MEDS: ASCORBIC ACID 500 MG TABLET PO SCH ×2 (08:14→21:23)
[2020-09-16] MEDS: FOLIC ACID 1 MG TABLET PER TUBE SCH (08:14)
[2020-09-16] MEDS: FAMOTIDINE 20 MG/2 ML VIAL IV SCH ×2 (08:14→21:23)
[2020-09-16] MEDS: SERTRALINE 50 MG TABLET PO SCH (08:15)
[2020-09-16] MEDS: ZINC GLUCONATE 50 MG TABLET PO SCH (08:15)
[2020-09-16] MEDS: clonazePAM 0.5 MG TABLET PO SCH ×2 (08:15→21:22)
[2020-09-16] MEDS: RIFAXIMIN 550 MG TABLET PO SCH ×2 (08:15→21:23)
[2020-09-16] MEDS: THIAMINE 100 MG TABLET PER TUBE SCH (08:15)
[2020-09-16] MEDS: AMIODARONE 200 MG TABLET PO SCH ×2 (08:16→21:21)
[2020-09-16] MEDS: NICOTINE 14 MG/24 HR PATCH TRANSDERM SCH (08:17)
[2020-09-16] MEDS: LACTULOSE 20 GM/30 ML UDCUP PER TUBE SCH ×3 (12:26→21:21)
[2020-09-16] MEDS ORDERED: DEXAMETHASONE 4 MG/1 ML VIAL IM SCH (12:30)
[2020-09-16] MEDS ORDERED: SODIUM CHLORIDE 0.9% 1,000 ML IV ONE (12:44)
[2020-09-16] MEDS: DEXTROSE 5% 1,000 ML IV SCH (14:41)
[2020-09-16] MEDS: ACETAMINOPHEN 325 MG TABLET PO PRN (21:23)
[2020-09-16] MEDS ORDERED: MANNITOL 12.5 GM/50 ML VIAL IV SCH (22:30)
[2020-09-16] MEDS ORDERED: MANNITOL 20 GM in PREMIX 1 EACH IV SCH (23:30)
[2020-09-17] MEDS: METOCLOPRAMIDE 10 MG/2 ML VIAL IV SCH (01:16)
[2020-09-17] MEDS: INSULIN REGULAR 100 UNIT/ML SUBCUT SCH (01:16)
[2020-09-17] MEDS: DEXAMETHASONE 4 MG/1 ML VIAL IV SCH (01:17)
[2020-09-17] MEDS ORDERED: LORazepam 2 MG/1 ML VIAL IV PRN (01:33)
[2020-09-17] MEDS: MORPHINE 4 MG/1 ML VIAL IV PRN ×2 (01:45→01:58)
[2020-09-17] MEDS ORDERED: ENOXAPARIN 40 MG/0.4 ML SYRINGE SUBCUT SCH (09:00)
== END 2020-09-17 01:59 | disposition expired | DRG 853 ==
LOC: N.ED 22:16 → N.EDINP 09-05 02:27 → SUATTDRO 09-05 02:27 → N.ICU 09-05 04:00 → N.CC 09-10 11:13
PROVIDERS: ADMIT Student in an Organized Health Care Education/Training Program; ATTEND Internal Medicine